=== PATIENT | female | born 1990 | race Caucasian/White ===

== ENCOUNTER 2016-11-02 14:19 | Inpatient (IN) | payer OTHER ==
[~2016-11-02] VITALS: Ht 160 cm; Wt 98.4 kg
[~2016-11-02 14:19] MED LIST: ALBU1AER9; ENAL1TAB34 PO; FLUT50SP14 NAE; GLUCAGON; INSDGIPEN SC; INSU100I10 SC; INSU100I17 SC; INSU1INJ7 SC; MOME110A2 IN; SERT25TA PO
[2016-11-02] MEDS ORDERED: ETONMIS VAGRING (14:54)
[2016-11-02] MEDS ORDERED: LORA10CA10 PO (14:54)
[2016-11-02] MEDS ORDERED: LISI2.5T5 PO (14:54)
[2016-11-02] MEDS ORDERED: VNTHFA/IN INH (14:54)
[2016-11-02] MEDS ORDERED: AMT25 PO (14:54)
[2016-11-02] MEDS ORDERED: GLC/500 PO (14:54)
[2016-11-02] MEDS ORDERED: FLUT1INH INH (14:54)
[2016-11-02] MEDS ORDERED: SERT50TA PO (14:54)
[2016-11-02] MEDS ORDERED: IMT100 PO (14:54)
[2016-11-02] MEDS ORDERED: INSUINJ5 (14:54)
[2016-11-02] MEDS ORDERED: ASPI81TA28 PO (14:54)
--- NOTE | 2016-11-02 15:32 | EMERGENCY ROOM VISIT NOTE ---
History First contact with patient: 14:45 Chief Complaint: ILLNESS Stated Complaint: HIVES,MUSCLE SPASMS ON R SIDE OF BODY History of Present Illness The patient is a 26 year old female who presents to the Emergency Room with complaints of right-sided muscle spasms that have been going on for 3 weeks. The patient reports muscle contractions in her right and lower extremity intermittently throughout the day. She thought that this may be related to the Chantix that she started in order to quit smoking. She stopped taking Chantix 4 days ago with no improvement in her symptoms. She was reportedly seen at [facility]. A workup was performed including blood work and a CT scan. No abnormalities were noted. She was reportedly told that it could possibly be a "mini stroke." She was recommended to start aspirin. She has been taking aspirin since Tuesday. She woke up with hives yesterday morning. She is also very itchy. She denies any difficulty swallowing or shortness of breath. No heart palpitations or dizziness. She does not have any known allergies to drugs. She does report an allergic reaction to insect stings. The patient has not tried any [id number]-[id number] medications for her symptoms. Review of Systems 10 system review performed and negative unless noted in HPI or below Past Medical/Surgical History Medical Problems: (1) MS (multiple sclerosis) (2) Multiple sclerosis PCO S Type 2 diabetes Hypertension Migraines Family History Diabetes Hypertension Heart disease Social History Smoking Status: Current Every Day Smoker Alcohol Use: occasionally Marital Status: single, in relationship Occupation Status: unemployed Current/Historical Medications Scheduled Amitriptyline HCl (Amitriptyline HCl), 25 MG PO DAILY Aspirin (Aspirin Ec), 81 MG PO DAILY Etonogestrel/Ethinyl Estradiol (Nuvaring), 1 EA VAGRING MONTHLY Fluticasone Furoate-Vilanterol (Breo Ellipta), 1 PUFF INH DAILY Lisinopril (Lisinopril), 2.5 MG PO DAILY Loratadine (Loratadine), 10 MG PO DAILY Metformin Hcl (Glucophage), 2,000 MG PO DAILY Sertraline (Zoloft), 50 MG PO DAILY Sumatriptan Succinate (Imitrex), 100 MG PO PRN Scheduled PRN Albuterol Hfa (Ventolin Hfa), 2-4 PUFFS INH DAILY PRN for SOB/Wheezing Miscellaneous Medications Insulin Glulisine (Apidra) Allergies Coded Allergies: No Known Allergies (Unverified , 07/27/11) Physical Exam Vital Signs Date Time Temp Pulse Resp B/P (MAP) Pulse Ox O2 Delivery O2 Flow Rate FiO2 11/02/16 17:30 102 20 137/84 98 Room Air 11/02/16 15:51 108 20 113/79 98 Room Air 11/02/16 14:21 36.8 126 20 121/80 97 Room Air Physical Exam VITALS: Vitals are noted on the nurse's note and reviewed by myself. Vital signs stable. GENERAL: 26-year-old female, in no acute distress, nondiaphoretic, well- developed well-nourished. SKIN: Sparse urticaria noted to the face and neck.. HEAD: Normocephalic atraumatic. EYES: Conjunctivae without injection, sclerae without icterus. Extraocular movements intact. MOUTH: Mucous membranes moist. No swelling of the oropharynx Tonsils are not enlarged. Pharynx without erythema or exudate. Uvula midline. Airway patent. Tongue does not deviate. NECK: Supple without nuchal rigidity. No lymphadenopathy. Cervical spine is nontender. No JVD. HEART: Regular rate and rhythm without murmurs gallops or rubs. LUNGS: Clear to auscultation bilaterally without wheezes, rales or rhonchi. No accessory muscle use. ABDOMEN: Positive bowel sounds x 4.Soft, nontender, without organomegaly. No guarding or rebound tenderness. MUSCULOSKELETAL: No muscle atrophy, erythema, or edema noted. Full range of motion in all extremities. No tenderness to palpation. Normal gait. Strength 5/5 throughout. NEURO: Patient was alert and oriented to person place and time. Negative pronator drift. Normal heel-to-toe walking. Sensation intact. Normal cerebellar function. Normal sensation to touch. No focal neurological deficits. Medical Decision & Procedures Laboratory Results 11/02/16 15:30 Red Blood Count 4.61, Mean Corpuscular Volume 86.6, Mean Corpuscular Hemoglobin 28.6, Mean Corpuscular Hemoglobin Concent 33.1, Mean Platelet Volume 9.3, Neutrophils (%) (Auto) 67.5, Lymphocytes (%) (Auto) 23.4, Monocytes (%) (Auto) 5.3, Eosinophils (%) (Auto) 3.3, Basophils (%) (Auto) 0.4, Neutrophils # (Auto) 9.87, Lymphocytes # (Auto) 3.42, Monocytes # (Auto) 0.78, Eosinophils # (Auto) 0.48, Basophils # (Auto) 0.06 11/02/16 15:30 Test 11/02/16 15:30 11/02/16 16:23 11/02/16 18:33 White Blood Count 14.63 K/uL (4.8-10.8) Red Blood Count 4.61 M/uL (4.2-5.4) Hemoglobin 13.2 g/dL (12.0-16.0) Hematocrit 39.9 % (37-47) Mean Corpuscular Volume 86.6 fL (80-100) Mean Corpuscular Hemoglobin 28.6 pg (25-34) Mean Corpuscular Hemoglobin Concent 33.1 g/dl (32-36) Platelet Count 376 K/uL (130-400) Mean Platelet Volume 9.3 fL (7.4-10.4) Neutrophils (%) (Auto) 67.5 % Lymphocytes (%) (Auto) 23.4 % Monocytes (%) (Auto) 5.3 % Eosinophils (%) (Auto) 3.3 % Basophils (%) (Auto) 0.4 % Neutrophils # (Auto) 9.87 K/uL (1.4-6.5) Lymphocytes # (Auto) 3.42 K/uL (1.2-3.4) Monocytes # (Auto) 0.78 K/uL (0.11-0.59) Eosinophils # (Auto) 0.48 K/uL (0-0.5) Basophils # (Auto) 0.06 K/uL (0-0.2) RDW Standard Deviation 41.7 fL (36.4-46.3) RDW Coefficient of Variation 13.1 % (11.5-14.5) Immature Granulocyte % (Auto) 0.1 % Immature Granulocyte # (Auto) 0.02 K/uL (0.00-0.02) Erythrocyte Sedimentation Rate 28 mm/hr (0-21) Anion Gap 9.0 mmol/L (3-11) Est Creatinine Clear Calc Drug Dose 96.4 ml/min Estimated GFR () 91.6 Estimated GFR (Non- 79.1 BUN/Creatinine Ratio 14.1 (10-20) Calcium Level 8.9 mg/dl (8.5-10.1) Lyme Disease IgG Antibody NEG (NEG) Lyme Disease IgM Antibody NEG (NEG) Urine Test NEG (NEG) Medications Administered Medications (Trade) Dose Ordered Sig/Bhavana Route Start Time Stop Time Status Last Admin Dose Admin Methylprednisolone Sodium Succinate (Solu-Medrol IV) 40 mg NOW STAT IV 11/02/16 15:11 11/02/16 15:15 DC 11/02/16 15:47 40 MG Diphenhydramine HCl (Benadryl Cap) 50 mg NOW ONCE PO 11/02/16 15:15 11/02/16 15:16 DC 11/02/16 15:47 50 MG Sodium Chloride 1,000 ml @ 999 mls/hr Q1H1M ONCE IV 11/02/16 16:15 11/02/16 17:15 DC 11/02/16 16:15 999 MLS/HR ED Course Patient was seen and examined Vital signs including blood pressure were reviewed medications list was verified with patient Labs were obtained, and a saline lock was established. The patient was given 1 dose of Solu-Medrol 40 mg IV and Benadryl 50 mg po. She was also hydrated with 1 L of normal saline. An MRI was performed and reviewed The patient was discussed with Dr. Whitney from neurology I also discussed the patient with my attending physician, Dr. Pedro I contacted the [facility] Hospitalist service, who agreed to observe the patient overnight Medical Decision Differential diagnosis: Musculoskeletal disease, multiple sclerosis, CVA, Lyme disease, other rheumatologic disease This patient is a pleasant 26-year-old female that presented to the emergency department with complaints of right upper extremity and right lower extremity spasms and addition to weakness. On exam, I could not elicit any weakness. She already had undergone a fairly extensive workup at [facility]. MRI performed today is consistent with a demyelinating process such as multiple sclerosis. Her elevated sedimentation rate would also make sense with this diagnosis. For this reason, the patient was admitted for further workup and treatment Impression Primary Impression: MS (multiple sclerosis) Departure Information Referrals Luis Laws D.O. (PCP) Patient Instructions My [facility]
[2016-11-02 15:57] LABS: BASO % 0.4 %; BASO ABS # 0.06 K/uL (0-0.2); COMPLETE YES; EOS % 3.3 %; HEMATOCRIT 39.9 % (37-47); IG% 0.1 %; LYMPH % 23.4 %; LYMPH ABS # 3.42 K/uL (1.2-3.4); MEAN CELL VOLUME 86.6 fL (80-100); MEAN CORPUSCULAR HEMOGLOBIN 28.6 pg (25-34); MEAN CORPUSCULAR HGB CONC 33.1 g/dl (32-36); MEAN PLATELET VOLUME 9.3 fL (7.4-10.4); MONO % 5.3 %; NEUT % 67.5 %; PLATELET COUNT 376 K/uL (130-400); RED BLOOD COUNT 4.61 M/uL (4.2-5.4); WHITE BLOOD COUNT 14.63 K/uL (4.8-10.8)
[2016-11-02 16:15] LABS: BUN/CREATININE RATIO 14.1 (10-20); CALCIUM 8.9 mg/dl (8.5-10.1); CREATININE 0.98 mg/dl (0.60-1.20); POTASSIUM 3.8 mmol/L (3.5-5.1)
[2016-11-02] MEDS ORDERED: SODIUM CHLORIDE 0.9% 1000ML 1,000 ML IV ONE (16:15)
[2016-11-02 16:51] LABS: LYME DISEASE AB IGG NEG (NEG)
[2016-11-02 16:52] LABS: LYME DISEASE AB IGM NEG (NEG)
[2016-11-02] MEDS ORDERED: GADAVIST IV PRN (17:15)
--- NOTE | 2016-11-02 17:17 | DIAGNOSTIC IMAGING REPORT ---
MRI OF THE BRAIN WITHOUT AND WITH IV CONTRAST CLINICAL HISTORY: R sided numbness/tingling COMPARISON STUDY: No previous studies for comparison. TECHNIQUE: MRI of the brain was performed from the vertex to the skull base utilizing various T1 and T2 weighted sequences. Following the IV administration of 5.5 mL of Gadavist contrast, additional enhanced images were obtained. FINDINGS: Sagittal T1, axial diffusion, proton density and T2 weighted axial, coronal FLAIR, and pre and post axial T1-weighted images were acquired. These were supplemented with post gadolinium coronal T1 weighted images. Axial diffusion-weighted images reveal no evidence of acute or subacute infarction. Foci of increased signal in the axial diffusion-weighted images do not demonstrate diminished signal on the ADC map. These are felt to represent areas of T2 shine through. There is no evidence of ventricular dilatation. Proton density T2-weighted and FLAIR images reveal multiple foci of increased T2 signal within the white matter. These include lesions in the right cerebellar peduncle, as well as the left external capsule. Given the patient's age, the lesions are consistent with a demyelinating process such as multiple sclerosis. There are no abnormal flow voids. Postcontrast images reveal multiple enhancing nodules, these are located within the left temporal lobe the right parietal lobe and both frontal lobes. The largest is located in the left frontal lobe measuring 1 cm. The left frontal lobe lesions demonstrate ring enhancement. These lesions likely represent active plaques. Clinical correlation is advocated. A follow-up MRI scan is also recommended. IMPRESSION: Multiple posterior fossa and supratentorial white matter lesions, many of which demonstrate solid or ring enhancement. Given the age of the patient, and the absence of a known primary malignancy, the findings likely represent demyelinating disease with active plaques. Correlation with clinical findings as well as CSF analysis is recommended. A short-term follow-up MRI study would also seem prudent. Electronically signed by: Tony Meza M.D. 11/02/2016 5:15 PM Dictated Date/Time: 11/02/2016 5:07 PM
[2016-11-02] MEDS ORDERED: MAGNESIUM HYDROXIDE SUSP 30 ML UDC PO PRN (18:45)
[2016-11-02] MEDS ORDERED: ALBUTEROL HFA 8 GM INHALER INH PRN (18:45)
[2016-11-02] MEDS ORDERED: ZOLPIDEM TARTRATE 5 MG TAB PO PRN (18:45)
[2016-11-02] MEDS ORDERED: ETONOGESTREL VAGRING SCH (18:45)
[2016-11-02] MEDS ORDERED: ONDANSETRON INJ 2 MG/ML 2 ML VIAL IV PRN (18:45)
[2016-11-02] MEDS ORDERED: ETHINYL ESTRADIOL VAGRING SCH (18:45)
[2016-11-02] MEDS ORDERED: ALUMINUM/MAGNESIUM/SIMETH (MAALOX MAX) 30 ML UDC PO PRN (18:45)
[2016-11-02] MEDS ORDERED: ACETAMINOPHEN 325 MG TAB PO PRN (18:45)
[2016-11-02] MEDS: NICOTINE 21 MG/24 HR TDSY TD SCH (18:45)
[2016-11-02] MEDS ORDERED: SUMATRIPTAN SUCC TAB 100 MG TAB PO PRN (18:45)
--- NOTE | 2016-11-02 18:52 | History and Physical ---
History & Physical Date & Time of Service: Nov 02, 2016 at 18:41 Chief Complaint: Hives,Muscle Spasms On R Side Of Body Primary Care Physician: Luis Laws D.O. History of Present Illness Source: patient This is 26 yo F with past medical hx of Type 1 Dm on insulin pump , depression , migraine headache , tobacco abuse disorder presented to ED with complain of intermittent rt hand spasm for past 3 months pt mentions her rt hand will go into severe spasm all of a sudden having balance issues no visual symptoms -no diplopia , no change of sensation no weakness or paresthesia in any other part of body no bladder or bowel incontinence Pt was seen in [place] ER past week , CT was negative was discharged on differential diagnosis of possible TIA MRI of brain in ED shows : Multiple posterior fossa and supratentorial white matter lesions, many of which demonstrate solid or ring enhancement. Given the age of the patient, and the absence of a known primary malignancy, the findings likely represent demyelinating disease with active plaques Social History Smoking Status: Current Every Day Smoker Marital Status: single, in relationship Occupational Status: unemployed Allergies Coded Allergies: No Known Allergies (Unverified , 07/27/11) Home Medications Scheduled Amitriptyline HCl (Amitriptyline HCl), 25 MG PO DAILY Aspirin (Aspirin Ec), 81 MG PO DAILY Etonogestrel/Ethinyl Estradiol (Nuvaring), 1 EA VAGRING MONTHLY Fluticasone Furoate-Vilanterol (Breo Ellipta), 1 PUFF INH DAILY Lisinopril (Lisinopril), 2.5 MG PO DAILY Loratadine (Loratadine), 10 MG PO DAILY Metformin Hcl (Glucophage), 2,000 MG PO DAILY Sertraline (Zoloft), 50 MG PO DAILY Sumatriptan Succinate (Imitrex), 100 MG PO PRN Scheduled PRN Albuterol Hfa (Ventolin Hfa), 2-4 PUFFS INH DAILY PRN for SOB/Wheezing Miscellaneous Medications Insulin Glulisine (Apidra) Review of Systems Constitutional: + fatigue, No fever, No chills, No sweats, No weight loss, No weakness, No problem reported Respiratory: No cough, No sputum, No wheezing, No shortness of breath, No dyspnea on exertion, No dyspnea at rest, No hemoptysis, No problem reported Cardiovascular: No chest pain, No orthopnea, No PND, No edema, No claudication , No palpitations, No problem reported Abdomen: No pain, No nausea, No vomiting, No diarrhea, No constipation, No GI bleeding, No problem reported Musculoskeletal: + joint pain, + muscle pain (rt hand spasm , intermittently ) Genitourinary - Female: No dysuria, No urinary frequency, No urinary urgency, No urinary incontinence, No urinary retention, No hematuria, No dysmenorrhea, No menorrhagia, No metrorrhagia, No rash, No vaginal bleeding, No vaginal discharge, No vaginal itching, No vulvodynia, No , No problem reported Neurologic: + balance problems Psychiatric: + anxiety Physical Exam Vital Signs Date Time Temp Pulse Resp B/P (MAP) Pulse Ox O2 Delivery O2 Flow Rate FiO2 11/02/16 17:30 102 20 137/84 98 Room Air 11/02/16 15:51 108 20 113/79 98 Room Air 11/02/16 14:21 36.8 126 20 121/80 97 Room Air General Appearance: no apparent distress Head: normocephalic, atraumatic Eyes: normal inspection, PERRL, EOMI, sclerae normal Neck: no JVD Respiratory/Chest: chest non-tender, lungs clear, normal breath sounds, no respiratory distress Cardiovascular: regular rate, rhythm, no edema Abdomen/GI: normal bowel sounds, non tender, soft Extremities/Musculoskelatal: normal inspection, no calf tenderness, normal capillary refill, no pedal edema, normal range of motion Neurologic/Psych: no motor/sensory deficits, alert, normal mood/affect, oriented x 3 Skin: normal color, warm/dry, no rash Lymphatic: no adenopathy Diagnostics Laboratory Results Results Past 24 Hours Test 11/02/16 15:30 11/02/16 16:23 11/02/16 18:33 Range/Units White Blood Count 14.63 4.8-10.8 K/uL Red Blood Count 4.61 4.2-5.4 M/uL Hemoglobin 13.2 12.0-16.0 g/dL Hematocrit 39.9 37-47 % Mean Corpuscular Volume 86.6 80-100 fL Mean Corpuscular Hemoglobin 28.6 25-34 pg Mean Corpuscular Hemoglobin Concent 33.1 32-36 g/dl Platelet Count 376 130-400 K/uL Mean Platelet Volume 9.3 7.4-10.4 fL Neutrophils (%) (Auto) 67.5 % Lymphocytes (%) (Auto) 23.4 % Monocytes (%) (Auto) 5.3 % Eosinophils (%) (Auto) 3.3 % Basophils (%) (Auto) 0.4 % Neutrophils # (Auto) 9.87 1.4-6.5 K/uL Lymphocytes # (Auto) 3.42 1.2-3.4 K/uL Monocytes # (Auto) 0.78 0.11-0.59 K/uL Eosinophils # (Auto) 0.48 0-0.5 K/uL Basophils # (Auto) 0.06 0-0.2 K/uL RDW Standard Deviation 41.7 36.4-46.3 fL RDW Coefficient of Variation 13.1 11.5-14.5 % Immature Granulocyte % (Auto) 0.1 % Immature Granulocyte # (Auto) 0.02 0.00-0.02 K/uL Erythrocyte Sedimentation Rate 28 0-21 mm/hr Sodium Level 137 136-145 mmol/L Potassium Level 3.8 3.5-5.1 mmol/L Chloride Level 104 98-107 mmol/L Carbon Dioxide Level 24 21-32 mmol/L Anion Gap 9.0 3-11 mmol/L Blood Urea Nitrogen 14 7-18 mg/dl Creatinine 0.98 0.60-1.20 mg/dl Est Creatinine Clear Calc Drug Dose 96.4 ml/min Estimated GFR () 91.6 Estimated GFR (Non- 79.1 BUN/Creatinine Ratio 14.1 10-20 Random Glucose 289 70-99 mg/dl Calcium Level 8.9 8.5-10.1 mg/dl Lyme Disease IgG Antibody NEG NEG Lyme Disease IgM Antibody NEG NEG Urine Test NEG NEG Microbiology Results 11/02/16 Blood Culture, Hilda Batch Pending 11/02/16 Blood Culture, Hilda Batch Pending 11/02/16 Acid Fast Stain, Hilda Batch Pending 11/02/16 Mycobacterial Culture, Hilda Batch Pending 11/02/16 Cryptococcal Antigen, Hilda Batch Pending 11/02/16 Gram Stain, Hilda Batch Pending 11/02/16 CSF Culture, Hilda Batch Pending Diagnostic Radiology MRI OF BRAIN : Multiple posterior fossa and supratentorial white matter lesions, many of which demonstrate solid or ring enhancement. Given the age of the patient, and the absence of a known primary malignancy, the findings likely represent demyelinating disease with active plaques Impression Assessment and Plan RT HAND SPASM /ABNORMAL MRI OF BRAIN : presents with intermittent rt hand spasm for past 3 weeks /associated with gait disturbance MRI of brain : Multiple posterior fossa and supratentorial white matter lesions, many of which demonstrate solid or ring enhancement. Given the age of the patient, and the absence of a known primary malignancy, the findings likely represent demyelinating disease with active plaques d/w Neurology Dr Whitney - pt will need CSF analysis for definitive diagnosis no role for high dose or IV steroid ordered for Lumber puncture Fluro guided by Radiology in AM given mentions of multiple solid /ring enhancement -CT abdomen /pelvis /CT chest ordered for further work up /rule out mets TACHYCARDIA /MILD LEUKOCYTOSIS : no fever or chills UA and culture ordered check blood culture D -dimer CT chest with PE protocol TYPE 1 DM : on insulin pump -will be continued check hb A1c in AM lab PCOS : hold metformin for contrast study in CT scan TOBACCO ABUSE DISORDER : ordered Nicotine patch FULL CODE DVT PROPHYLAXIS : low risk scd and teds no sub q heparin /hold aspirin for LP in AM DISPOSITION : discharge home when medically stable Level of Care Med/Surg Resuscitation Status FULL RESUSCITATION VTE Prophylaxis VTE Risk Assessment Done? Y/N: Yes Risk Level: Low Given or contraindicated: Betty Stockings, SCD's Additional Copies To Luis Laws D.O. Mateer, John, M.D. (MEDICINE)
[2016-11-02] MEDS ORDERED: NICOTINE 21 MG/24 HR TDSY ONE (18:57)
[2016-11-02] MEDS ORDERED: OPTIRAY 320 IV PRN (19:45)
[2016-11-02] MEDS ORDERED: POLYETHYLENE (MIRALAX) 17 GM PACK PO PRN (19:45)
--- NOTE | 2016-11-02 19:51 | DIAGNOSTIC IMAGING REPORT ---
CT ABD/PELVIS IV CONTRAST ONLY CLINICAL HISTORY: Intracranial masses. Possible metastatic disease. COMPARISON STUDY: None. TECHNIQUE: Following the IV administration of 116 mL of Optiray-320, CT scan of the abdomen and pelvis was performed from the lung bases to the proximal femurs. Images are reviewed in the axial, sagittal, and coronal planes. IV contrast was administered without complication. CT DOSE: FINDINGS: Lower chest: The heart is normal in size and configuration, without pericardial effusion. The lung bases and pleural spaces are clear. Liver: The contrast-enhanced liver is normal in size, contour, and attenuation. There is no intrahepatic biliary ductal dilatation. The hepatic veins and portal veins are patent. Gallbladder: Unremarkable. Spleen: Normal in size and attenuation. Pancreas: Unremarkable. Adrenal glands: Unremarkable. Kidneys: There is symmetric renal cortical enhancement. The kidneys are normal in size without hydronephrosis. Bowel: There are no transition zones indicate bowel obstruction. The appendix appears normal. There is no acute diverticulitis. Peritoneum: There is no intraperitoneal free air or abdominal ascites. Vasculature: The abdominal aorta is normal in course and caliber. Adenopathy: None. Pelvic viscera: The bladder, and pelvic viscera are unremarkable. Skeletal structures: No destructive osseous lesions are seen. IMPRESSION: Normal Study Electronically signed by: Tony Meza M.D. 11/02/2016 7:49 PM Dictated Date/Time: 11/02/2016 7:44 PM
--- NOTE | 2016-11-02 19:54 | DIAGNOSTIC IMAGING REPORT ---
CT ANGIOGRAPHY OF THE CHEST, PULMONARY EMBOLUS PROTOCOL CLINICAL HISTORY: Tachycardia. Muscle spasms. COMPARISON STUDY: No previous studies for comparison. TECHNIQUE: Following IV administration of 116 mL of Optiray-320, helical axial images of the chest were obtained utilizing the pulmonary embolus protocol. Maximal intensity projections and sagittal and coronal reformats were viewed on an independent 3D workstation. IV contrast was administered without complication. CT DOSE: 1929.81 mGy.cm FINDINGS: No pulmonary emboli are identified. There is no evidence of thoracic aortic dissection. Size the heart is normal. There is no pericardial effusion. No enlarged axillary, mediastinal or hilar lymph nodes are present. The central airways are patent. There is no consolidation to suggest pneumonia. The lungs are clear. Bony thorax is unremarkable. Abdomen and pelvis will be reported separately. IMPRESSION: 1. No pulmonary identified. 2. No acute intrathoracic findings. 3. No evidence of malignancy within the chest. Electronically signed by: Isaac Page M.D. 11/02/2016 7:52 PM Dictated Date/Time: 11/02/2016 7:43 PM
[2016-11-02] MEDS ORDERED: IV FLUIDS COMPLETED PRN (21:00)
[2016-11-02] MEDS: SODIUM CHLORIDE 0.9% 1000ML 1,000 ML IV SCH (22:23)
[2016-11-02] MEDS: AMITRIPTYLINE HCL 25 MG TAB PO SCH (22:24)
[2016-11-02 23:16] VITALS: BP 130/73; PULSE 101; TEMP 36.9; O2SAT 96
[2016-11-02 23:22] LABS: URINE APPEARANCE CLEAR (CLEAR); URINE BILIRUBIN NEG (NEG); URINE COLOR YELLOW; URINE EPITHELIAL CELL AUTO 20-30 /lpf (0-5); URINE NITRITE NEG (NEG); URINE SPECIFIC GRAVITY > 1.045 (1.000-1.030); UROBILINOGEN NEG (NEG); ZZUR CULT IF INDIC CLEAN CATCH NO
[2016-11-02 23:26] VITALS: BP 136/81; PULSE 112; TEMP 37; O2SAT 96; BMI 38.4
[2016-11-02 23:33] LABS: MANUAL MICROSCOPIC REQUIRED? NO; REVIEW REQ? NO
[2016-11-03] VITALS: O2SAT 96
[2016-11-03 06:19] LABS: HEMATOCRIT 38.3 % (37-47); MEAN CORPUSCULAR HEMOGLOBIN 29.9 pg (25-34); MEAN CORPUSCULAR HGB CONC 33.9 g/dl (32-36); MEAN PLATELET VOLUME 9.3 fL (7.4-10.4); PLATELET COUNT 374 K/uL (130-400); RED BLOOD COUNT 4.35 M/uL (4.2-5.4); WHITE BLOOD COUNT 16.55 K/uL (4.8-10.8)
--- NOTE | 2016-11-03 06:38 | Neurology Consultation ---
Neurology Consultation Date of Consultation: Nov 03, 2016. Attending Physician: Trinh Mosquera M.D. Primary Care Physician: Luis Laws D.O. Reason for Consultation: muscle spasms and abnormal mri History of Present Illness Source: patient, family, hospital records 26 year old woman with prior history of longstanding diabetes with apparent hypothyroidism as well who presented with episodic spasms of right hand, arm and leg to a lesser degree, Seen in [place] [facility] diagnosed as having tias and given single dose of baby asa with development of hives and facial swelling Presented to our ER last pm for "another opinion" and mri shows mjultiple supraand infratentorial higg t2 intensity signals with some ring enhancement Differential included ms parainfectious agents with post infectious disseminated encephalomyelitis and 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 mets and there have been no preceding illnesses, headache vertigo visual loss gait issues spinal pain radicular pain and no systemic symptoms to suggest either an underlying malignancy or a febrile illness She has no been admitted and I have seen her discussed our finding with both her, her family and Dr Cooper Past Medical/Surgical History Social History Smoking Status: Current Every Day Smoker Marital Status: single, in relationship Occupational Status: unemployed Allergies Coded Allergies: No Known Allergies (Unverified , 07/27/11) Home Medications Scheduled Amitriptyline HCl (Amitriptyline HCl), 25 MG PO DAILY Aspirin (Aspirin Ec), 81 MG PO DAILY Etonogestrel/Ethinyl Estradiol (Nuvaring), 1 EA VAGRING MONTHLY Fluticasone Furoate-Vilanterol (Breo Ellipta), 1 PUFF INH DAILY Lisinopril (Lisinopril), 2.5 MG PO DAILY Loratadine (Loratadine), 10 MG PO DAILY Metformin Hcl (Glucophage), 2,000 MG PO DAILY Sertraline (Zoloft), 50 MG PO DAILY Sumatriptan Succinate (Imitrex), 100 MG PO PRN Scheduled PRN Albuterol Hfa (Ventolin Hfa), 2-4 PUFFS INH DAILY PRN for SOB/Wheezing Miscellaneous Medications Insulin Glulisine (Apidra) Review of Systems Constitutional: + fatigue, No fever, No chills, No sweats, No weight loss, No weakness, No problem reported Respiratory: No cough, No sputum, No wheezing, No shortness of breath, No dyspnea on exertion, No dyspnea at rest, No hemoptysis, No problem reported Cardiovascular: No chest pain, No orthopnea, No PND, No edema, No claudication , No palpitations, No problem reported Abdomen: No pain, No nausea, No vomiting, No diarrhea, No constipation, No GI bleeding, No problem reported Musculoskeletal: + joint pain, + muscle pain (rt hand spasm , intermittently ) Genitourinary - Female: No dysuria, No urinary frequency, No urinary urgency, No urinary incontinence, No urinary retention, No hematuria, No dysmenorrhea, No menorrhagia, No metrorrhagia, No rash, No vaginal bleeding, No vaginal discharge, No vaginal itching, No vulvodynia, No , No problem reported Neurologic: + balance problems Psychiatric: + anxiety Social History Smoking Status: Current every day smoker Marital Status: single, in relationship Occupation Status: unemployed Allergies Coded Allergies: Aspirin (Verified Allergy, Intermediate, hives and swelling , 11/03/16) per pt Current Inpatient Medications Current Inpatient Medications Medications (Trade) Dose Ordered Sig/Bhavana Route Start Time Stop Time Status Last Admin Dose Admin Gadobutrol (Gadavist) 9.5 mmol UD PRN IV 11/02/16 17:15 11/06/16 17:14 Acetaminophen (Tylenol Tab) 650 mg Q4H PRN PO 11/02/16 18:45 12/02/16 18:44 Al Hydrox/Mg Hydrox/Simethicone (Maalox Max Susp) 15 ml Q4H PRN PO 11/02/16 18:45 12/02/16 18:44 Magnesium Hydroxide (Milk Of Magnesia Susp) 30 ml Q6H PRN PO 11/02/16 18:45 12/02/16 18:44 Polyethylene (Miralax Powder Packet) 17 gm DAILY PRN PO 11/02/16 19:45 12/02/16 19:44 Zolpidem Tartrate (Ambien Tab) 5 mg HSZ PRN PO 11/02/16 18:45 12/02/16 18:44 Ondansetron HCl (Zofran Inj) 4 mg Q6H PRN IV 11/02/16 18:45 12/02/16 18:44 Nicotine (Nicoderm Cq 21MG Patch) 1 patch QAM TD 11/02/16 18:45 8/10/17 18:44 Miscellaneous (Remove Nicoderm Patch) 1 ea HS N/A 11/03/16 22:00 12/03/16 21:59 Sodium Chloride 1,000 ml @ 100 mls/hr Q10H IV 11/02/16 21:00 12/02/16 20:59 11/02/16 22:23 100 MLS/HR Albuterol (Ventolin Hfa Inhaler) 2 puffs DAILY PRN INH 11/02/16 18:45 12/02/16 18:44 Amitriptyline HCl (Elavil Tab) 25 mg HS PO 11/02/16 22:00 12/02/16 21:59 11/02/16 22:24 25 MG Lisinopril (Zestril Tab) 2.5 mg DAILY PO 11/03/16 08:00 12/03/16 08:59 Sertraline HCl (Zoloft Tab) 50 mg DAILY PO 11/03/16 08:00 12/03/16 08:59 Sumatriptan Succinate (Imitrex Tab) 100 mg PRN PRN PO 11/02/16 18:45 12/02/16 18:44 Miscellaneous Information (Order Awaiting Action) 1 ea QS N/A 11/03/16 00:00 12/03/16 00:00 Loratadine (Claritin Tab) 10 mg DAILY PO 11/03/16 08:00 12/03/16 08:59 Ioversol (Optiray 320) 116 ml UD PRN IV 11/02/16 19:45 11/06/16 19:44 Miscellaneous (Iv Fluids Completed) 1 ea PRN PRN N/A 11/02/16 21:00 11/02/17 20:59 Physical Exam Vital Signs (Past 24 Hrs): Date Time Temp Pulse Resp B/P (MAP) Pulse Ox O2 Delivery O2 Flow Rate FiO2 11/03/16 00:00 96 Room Air 11/02/16 23:26 37.0 112 18 136/81 96 Room Air 11/02/16 23:16 36.9 101 18 130/73 (92) 96 Room Air 11/02/16 19:02 76 20 171/98 98 11/02/16 17:30 102 20 137/84 98 Room Air 11/02/16 15:51 108 20 113/79 98 Room Air 11/02/16 14:21 36.8 126 20 121/80 97 Room Air Physical Exam: , appearance mildly overnourished otherwise healthy and normal Ears, Nose, Mouth and Throat: mucous membranes moist, no injection and skin normal, eyes normal Cardiovascular: normal S-1 and S-2 and regular rate and rhythm Respiratory: clear to auscultation (CTA) and no rales, ronchi or wheeze Musculoskeletal: no peripheral edema and good distal pulses Skin: normal and intact Eyes: extraocular muscles intact (EOMI) and pupils equal, round and reactive to light (PERRL) NEUROLOGIC EXAMINATION: Mental status: Alert and interactive Oriented to full date and location Oriented to person Speech fluent with no evidence of aphasia Cranial Nerves Normal findings for Cranial Nerves II - XII Reflexes: Deep tendon reflexes were symmetrical and graded 2/5. Plantar responses were bilaterally extensor Sensory: no sensory deficits Coordination: on yjtgcd-sy-badt, wwpm-fjpd-vzxs and Romberg absent Gait/Stance: Not tested due to post lp status with bed rest Motor: Negative for pronator drift of out stretched arms with eyes closed. Strength: Normal - 5/5 all extremities Laboratory Results Past 24 Hours: 11/03/16 06:02 Test 11/02/16 15:30 11/02/16 16:23 11/02/16 22:55 11/03/16 04:44 Immature Granulocyte % (Auto) 0.1 % White Blood Count 14.63 K/uL (4.8-10.8) Red Blood Count 4.61 M/uL (4.2-5.4) Hemoglobin 13.2 g/dL (12.0-16.0) Hematocrit 39.9 % (37-47) Mean Corpuscular Volume 86.6 fL (80-100) Mean Corpuscular Hemoglobin 28.6 pg (25-34) Mean Corpuscular Hemoglobin Concent 33.1 g/dl (32-36) Platelet Count 376 K/uL (130-400) Mean Platelet Volume 9.3 fL (7.4-10.4) Neutrophils (%) (Auto) 67.5 % Lymphocytes (%) (Auto) 23.4 % Monocytes (%) (Auto) 5.3 % Eosinophils (%) (Auto) 3.3 % Basophils (%) (Auto) 0.4 % Neutrophils # (Auto) 9.87 K/uL (1.4-6.5) Lymphocytes # (Auto) 3.42 K/uL (1.2-3.4) Monocytes # (Auto) 0.78 K/uL (0.11-0.59) Eosinophils # (Auto) 0.48 K/uL (0-0.5) Basophils # (Auto) 0.06 K/uL (0-0.2) Immature Granulocyte # (Auto) 0.02 K/uL (0.00-0.02) Erythrocyte Sedimentation Rate 28 mm/hr (0-21) Est Creatinine Clear Calc Drug Dose 96.4 ml/min Lyme Disease IgG Antibody NEG (NEG) Lyme Disease IgM Antibody NEG (NEG) Urine Test NEG (NEG) Urine Color YELLOW Urine Appearance CLEAR (CLEAR) Urine pH 6.0 (4.5-7.5) Urine Specific [place] > 1.045 (1.000-1.030) Urine Protein NEG (NEG) Urine Glucose (UA) 3+ (NEG) Urine Ketones NEG (NEG) Urine Occult Blood 1+ (NEG) Urine Nitrite NEG (NEG) Urine Bilirubin NEG (NEG) Urine Urobilinogen NEG (NEG) Urine Leukocyte Esterase NEG (NEG) Urine WBC (Auto) 1-5 /hpf (0-5) Urine RBC (Auto) 0-4 /hpf (0-4) Urine Hyaline Casts (Auto) 0 /lpf (0-5) Urine Epithelial Cells (Auto) 20-30 /lpf (0-5) Urine Bacteria (Auto) NEG (NEG) Test 11/03/16 05:58 11/03/16 06:02 Red Blood Count 4.35 M/uL (4.2-5.4) Mean Corpuscular Volume 88.0 fL (80-100) Mean Corpuscular Hemoglobin 29.9 pg (25-34) Mean Corpuscular Hemoglobin Concent 33.9 g/dl (32-36) RDW Standard Deviation 42.0 fL (36.4-46.3) RDW Coefficient of Variation 13.0 % (11.5-14.5) Mean Platelet Volume 9.3 fL (7.4-10.4) Imaging MRI OF THE BRAIN WITHOUT AND WITH IV CONTRAST CLINICAL HISTORY: R sided numbness/tingling COMPARISON STUDY: No previous studies for comparison. TECHNIQUE: MRI of the brain was performed from the vertex to the skull base utilizing various T1 and T2 weighted sequences. Following the IV administration of 5.5 mL of Gadavist contrast, additional enhanced images were obtained. FINDINGS: Sagittal T1, axial diffusion, proton density and T2 weighted axial, coronal FLAIR, and pre and post axial T1-weighted images were acquired. These were supplemented with post gadolinium coronal T1 weighted images. Axial diffusion-weighted images reveal no evidence of acute or subacute infarction. Foci of increased signal in the axial diffusion-weighted images do not demonstrate diminished signal on the ADC map. These are felt to represent areas of T2 shine through. There is no evidence of ventricular dilatation. Proton density T2-weighted and FLAIR images reveal multiple foci of increased T2 signal within the white matter. These include lesions in the right cerebellar peduncle, as well as the left external capsule. Given the patient's age, the lesions are consistent with a demyelinating process such as multiple sclerosis. There are no abnormal flow voids. Postcontrast images reveal multiple enhancing nodules, these are located within the left temporal lobe the right parietal lobe and both frontal lobes. The largest is located in the left frontal lobe measuring 1 cm. The left frontal lobe lesions demonstrate ring enhancement. These lesions likely represent active plaques. Clinical correlation is advocated. A follow-up MRI scan is also recommended. IMPRESSION: Multiple posterior fossa and supratentorial white matter lesions, many of which demonstrate solid or ring enhancement. Given the age of the patient, and the absence of a known primary malignancy, the findings likely represent demyelinating disease with active plaques. Correlation with clinical findings as well as CSF analysis is recommended. A short-term follow-up MRI study would also seem prudent. Electronically signed by: Tony Meza M.D. 11/02/2016 5:15 PM Dictated Date/Time: 11/02/2016 5:[address] ABD/PELVIS IV CONTRAST ONLY CLINICAL HISTORY: Intracranial masses. Possible metastatic disease. COMPARISON STUDY: None. TECHNIQUE: Following the IV administration of 116 mL of Optiray-320, CT scan of the abdomen and pelvis was performed from the lung bases to the proximal femurs. Images are reviewed in the axial, sagittal, and coronal planes. IV contrast was administered without complication. CT DOSE: FINDINGS: Lower chest: The heart is normal in size and configuration, without pericardial effusion. The lung bases and pleural spaces are clear. Liver: The contrast-enhanced liver is normal in size, contour, and attenuation. There is no intrahepatic biliary ductal dilatation. The hepatic veins and portal veins are patent. Gallbladder: Unremarkable. Spleen: Normal in size and attenuation. Pancreas: Unremarkable. Adrenal glands: Unremarkable. Kidneys: There is symmetric renal cortical enhancement. The kidneys are normal in size without hydronephrosis. Bowel: There are no transition zones indicate bowel obstruction. The appendix appears normal. There is no acute diverticulitis. Peritoneum: There is no intraperitoneal free air or abdominal ascites. Vasculature: The abdominal aorta is normal in course and caliber. Adenopathy: None. Pelvic viscera: The bladder, and pelvic viscera are unremarkable. Skeletal structures: No destructive osseous lesions are seen. IMPRESSION: Normal Study Electronically signed by: Tony Meza M.D. 11/02/2016 7:49 PM Dictated Date/Time: 11/02/2016 7:[address] ANGIOGRAPHY OF THE CHEST, PULMONARY EMBOLUS PROTOCOL CLINICAL HISTORY: Tachycardia. Muscle spasms. COMPARISON STUDY: No previous studies for comparison. TECHNIQUE: Following IV administration of 116 mL of Optiray-320, helical axial images of the chest were obtained utilizing the pulmonary embolus protocol. Maximal intensity projections and sagittal and coronal reformats were viewed on an independent 3D workstation. IV contrast was administered without complication. CT DOSE: 1929.81 mGy.cm FINDINGS: No pulmonary emboli are identified. There is no evidence of thoracic aortic dissection. Size the heart is normal. There is no pericardial effusion. No enlarged axillary, mediastinal or hilar lymph nodes are present. The central airways are patent. There is no consolidation to suggest pneumonia. The lungs are clear. Bony thorax is unremarkable. Abdomen and pelvis will be reported separately. IMPRESSION: 1. No pulmonary identified. 2. No acute intrathoracic findings. 3. No evidence of malignancy within the chest. Electronically signed by: Isaac Page M.D. 11/02/2016 7:52 PM Dictated Date/Time: 11/02/2016 7:43 PM Impression I have discussed this case with the ER staff and subsequenty with Dr Mosquera. Images and repports and preliminary labs reviewed Patient will be seen later this afternoon and a full physican and amended history will be added to the chart At present with the history and imaging studies ( including negative ct of chest abdoman and plelvis ) and give the age and pattern of abnormality on mri of the brain the most likely diagnosis is multiple sclerosis LP with the standard serum and csf studies for ms. lyme' sarcoid and other infectious processes is to be done today ' we will likely do a cervical mri as well to ascertain whether there are acive plaques in the cord and consider therapeutic options when lab testing is more complete but suspect a course of iv steoirds and a subsequent taper will eventully required wit intermediate accountant treatment to be decided. We will need eeg to be certain some of the spasms are not due to seiizure activity which would be unusual but not out of the realm of possibilities particularaly if a plaque is near the cortical subcortical junction. Amended note to follow this afternoon Exam this afternoon as above recorded and reveals no signs other than bilateral upgoing toes The differential diagnosis remains as per radiology but clinically with her prior assumed autoimmune mediated issues I strongly suspect ms and there is no evidence to support other mets or primary cancers and no history to sugggest an infectious process We need to wait results of csf and eeg and cervical mri but she is anxious to leave and suspect we will only be able to hold her here until after the mri and eeg I doubt seizures however on review of the history and exam bu the lestion in the left frontal subcortical zone could theoretically prodce some spasms of the conralateral right am Plan See above need csf for ms and the usual suspects as above noted, eventually a cervical mri with and without contrast an eeg and likely a course of iv steroids with oral taper to follow and a return visit to neurology for determination of prison rx will need juan carlos virus stratification bu this is an outpatent test in our lab as she might be a candidate for very aggressive early rx with tyasbri or one of the oral agents with a higher risk for pml Currently her clinical state despite the presence of enhancement of several lesions does not justify steroids and she desires discharge Unless csf is markedly abnormal and suggests an infectious process we could let her go home with follow up in neurology outpatient clinic in about two weeks I will not be in [facility] until tomorrow pm so am not likely to see her prior to discharge will discuss with Dr Mosquera in the morning
[2016-11-03 06:46] LABS: ESTIMATED AVERAGE GLUCOSE 180 mg/dl; HA1C FLAG Normal (Normal)
[2016-11-03 06:47] LABS: BUN/CREATININE RATIO 13.4 (10-20); CALCIUM 8.3 mg/dl (8.5-10.1); CREATININE 0.8 mg/dl (0.60-1.20); POTASSIUM 4.1 mmol/L (3.5-5.1)
[2016-11-03 07:11] VITALS: BP 108/62; PULSE 106; TEMP 36.9; O2SAT 95
[2016-11-03] MEDS: SODIUM CHLORIDE 0.9% 1000ML 1,000 ML IV SCH (07:56)
[2016-11-03] MEDS: LORATADINE 10 MG TAB PO SCH (07:57)
[2016-11-03] MEDS: LISINOPRIL 2.5 MG TAB PO SCH (07:57)
[2016-11-03] MEDS: NICOTINE 21 MG/24 HR TDSY TD SCH (07:57)
[2016-11-03] MEDS: SERTRALINE HCL 50 MG TAB PO SCH (07:57)
[2016-11-03 13:23] VITALS: Ht 160 cm; Wt 98.4 kg
[2016-11-03] MEDS ORDERED: ACETAMINOPHEN 500 MG TAB PO PRN (14:45)
--- NOTE | 2016-11-03 14:52 | DIAGNOSTIC IMAGING REPORT ---
LUMBAR PUNCTURE DIAGNOSTIC CLINICAL HISTORY: 26 years-old Female presenting with brain MRI change /multiple sclerosis . COMPARISON: MRI of the brain from 11/02/2016. PROCEDURE: The procedure, risks and benefits were discussed with the patient including the risk of spinal headache, bleeding and infection. The patient agreed to the procedure and informed written consent was obtained. The procedure was performed by Dr. Gonzalez following a timeout. The L4-5 interspinous region was targeted. Skin overlying the space was prepped and draped in the usual sterile fashion and local anesthesia was achieved with 1% lidocaine. Under intermittent fluoroscopic guidance, a 20-gauge x 3 1/2 in. Sprotte needle was inserted into the thecal sac. Opening pressure measured 27 cm of H2O. A total of 10 cc of clear, colorless cerebral spinal fluid was obtained and spread amongst 4 vials. The patient tolerated the procedure well. There were no immediate complications. The specimens were sent to the laboratory at the request of the referring physician. FLUOROSCOPY TIME: 0.4 minutes. FLUOROSCOPIC IMAGES: 0. IMPRESSION: Successful fluoroscopic guided lumbar puncture with removal of 10 cc of clear, colorless cerebral spinal fluid. No immediate complications. Electronically signed by: Khris Gonzalez M.D. 11/03/2016 2:51 PM Dictated Date/Time: 11/03/2016 2:50 PM
[2016-11-03 15:02] VITALS: BP 116/72; PULSE 102; TEMP 36.7; O2SAT 100
[2016-11-03 15:18] LABS: CSF TOTAL PROTEIN 41.6 mg/dl (15.0-45.0)
[2016-11-03 15:58] LABS: CSF APPEARANCE CLEAR; CSF COLOR COLORLESS; CSF XANTHOCHROMIC NO XANTHOCHROMIA
--- NOTE | 2016-11-03 16:29 | Progress Note ---
Internal Med Progress Note Date of Service: Nov 03, 2016. Provider Documentation: SUBJECTIVE: has lumber puncture done earlier today no complain of headache did not had any more episodes of rt hand spasm OBJECTIVE: Vital Signs-as noted below Exam: General-no sign of distress Eyes-sclera non icteric , PERRLA/EOMI ENT-NAD Neck-no JVD Lungs-CTA Heart-regular S1/S2 Abdomen-soft, non tender Extremities-no lower ext edema Neuro-no focal deficit Lab data as noted below. ASSESSMENT & PLAN: RT HAND SPASM /ABNORMAL MRI OF BRAIN : presents with intermittent rt hand spasm for past 3 weeks /associated with gait disturbance MRI of brain : Multiple posterior fossa and supratentorial white matter lesions, many of which demonstrate solid or ring enhancement. Given the age of the patient, and the absence of a known primary malignancy, the findings likely represent demyelinating disease with active plaques appreciate input form Neurology Dr Whitney - Lyme titer negative S/P lumber puncture today CSF analysis for definitive diagnosis -of MS -oligoclonal band /myelin basic protein ordered CSF WBC elevated 17 K d/w Dr Whitney regarding above finding possible finding due to active Multiple sclerosis ordered for Cervical spine MRI pt is very eager to go home -does not have any neurological symptoms at present plan is to discharge home tomorrow after MRI , EEG ordered to R/O focal seizure will have out pt follow up at Neurology office for definitive management given mentions of multiple solid /ring enhancement -CT abdomen /pelvis /CT chest ordered : normal study , no evidence of pathology LEUKOCYTOSIS : no fever or chills UA and culture ordered / blood culture -report pending CT chest with PE protocol -no PE TYPE 1 DM : on insulin pump -will be continued hb A1c ~8 PCOS : hold metformin for contrast study in CT scan TOBACCO ABUSE DISORDER : ordered Nicotine patch FULL CODE DVT PROPHYLAXIS : low risk scd and teds no sub q heparin /hold aspirin s/p Lumber puncture DISPOSITION : possible discharge home tomorrow with out patient follow up with Neurology Vital Signs: Date Time Temp Pulse Resp B/P (MAP) Pulse Ox O2 Delivery O2 Flow Rate FiO2 11/03/16 15:02 36.7 102 18 116/72 (87) 100 Room Air 11/03/16 08:00 Room Air 11/03/16 07:11 36.9 106 18 108/62 (77) 95 Room Air 11/03/16 00:00 96 Room Air 11/02/16 23:26 37.0 112 18 136/81 96 Room Air 11/02/16 23:16 36.9 101 18 130/73 (92) 96 Room Air 11/02/16 19:02 76 20 171/98 98 11/02/16 17:30 102 20 137/84 98 Room Air Lab Results: Results Past 24 Hours Test 11/02/16 22:55 11/03/16 05:58 11/03/16 06:02 11/03/16 07:37 Range/Units Urine Color YELLOW Urine Appearance CLEAR CLEAR Urine pH 6.0 4.5-7.5 Urine Specific [place] > 1.045 1.000-1.030 Urine Protein NEG NEG Urine Glucose (UA) 3+ NEG Urine Ketones NEG NEG Urine Occult Blood 1+ NEG Urine Nitrite NEG NEG Urine Bilirubin NEG NEG Urine Urobilinogen NEG NEG Urine Leukocyte Esterase NEG NEG Urine WBC (Auto) 1-5 0-5 /hpf Urine RBC (Auto) 0-4 0-4 /hpf Urine Hyaline Casts (Auto) 0 0-5 /lpf Urine Epithelial Cells (Auto) 20-30 0-5 /lpf Urine Bacteria (Auto) NEG NEG Sodium Level 138 136-145 mmol/L Potassium Level 4.1 3.5-5.1 mmol/L Chloride Level 106 98-107 mmol/L Carbon Dioxide Level 26 21-32 mmol/L Anion Gap 6.0 3-11 mmol/L Blood Urea Nitrogen 11 7-18 mg/dl Creatinine 0.80 0.60-1.20 mg/dl Est Creatinine Clear Calc Drug Dose 118.0 ml/min Estimated GFR () 117.1 Estimated GFR (Non- 101.0 BUN/Creatinine Ratio 13.4 10-20 Random Glucose 196 70-99 mg/dl Calcium Level 8.3 8.5-10.1 mg/dl White Blood Count 16.55 4.8-10.8 K/uL Red Blood Count 4.35 4.2-5.4 M/uL Hemoglobin 13.0 12.0-16.0 g/dL Hematocrit 38.3 37-47 % Mean Corpuscular Volume 88.0 80-100 fL Mean Corpuscular Hemoglobin 29.9 25-34 pg Mean Corpuscular Hemoglobin Concent 33.9 32-36 g/dl RDW Standard Deviation 42.0 36.4-46.3 fL RDW Coefficient of Variation 13.0 11.5-14.5 % Platelet Count 374 130-400 K/uL Mean Platelet Volume 9.3 7.4-10.4 fL Estimated Average Glucose 180 mg/dl Hemoglobin A1c 7.9 4.5-5.6 % Bedside Glucose 288 70-90 mg/dl Test 11/03/16 11:26 11/03/16 14:35 Range/Units Bedside Glucose 302 70-90 mg/dl CSF Color COLORLESS CSF Appearance CLEAR CSF WBC 17 0-5 /uL CSF RBC 0 0 /uL CSF Polynuclear WBCs 8.0 % CSF Mononuclear WBCs 92.0 % CSF Xanthrochromic NO XANTHOCHROMIA CSF Cell Count Tube # 3 CSF Chemistry Tube # 1 CSF Glucose 134 40-70 mg/dl CSF Total Protein 41.6 15.0-45.0 mg/dl Microbiology Results 11/02/16 Blood Culture, Received Pending 11/02/16 Blood Culture, Received Pending 11/03/16 Acid Fast Stain, Received Pending 11/03/16 Mycobacterial Culture, Received Pending 11/03/16 Cryptococcal Antigen - Final, Complete 11/03/16 Gram Stain - Final, Resulted 11/03/16 CSF Culture, Resulted Pending
--- NOTE | 2016-11-03 16:42 | Discharge Instructions ---
Discharge Instructions Date of Service Nov 03, 2016. Admission Reason for Admission: Multiple Sclerosis Discharge Discharge Diagnosis / Problem: MULTIPLE SCLEROSIS Discharge Goals Goal(s): Decrease discomfort, Diagnostic testing Activity Recommendations Activity Limitations: resume your previous activity . Instructions / Follow-Up Instructions / Follow-Up HOSPITAL FOLLOW UP 11/08/2016 10:00 AM JENNIFER Esteb[facility] NEUROLOGY FOLLOW UP : with Dr Whitney in 1-2 weeks , please call office for appointment DO NOT TAKE METFORMIN FOR 2 MORE [address] PLEASE NOTIFY DR DÍAZ OFFICE FOR INSULIN PUMP ADJUSTMENT -NEED FOR HIGH DOSE STEROID FOR MULTIPLE SCLEROSIS NEED TO QUIT SMOKING -HIGH RISK -TYPE 1 DIABETES /MULTIPLE SCLEROSIS PLEASE COME TO HOSPITAL WITH ANY ONSET OF VISION CHANGE , WEAKNESS, LOSS OF SENSATION , HAND SPASM , BALANCE ISSUE SIGN OF ACTIVE MULTIPLE SCLEROSIS FLARE NEED IMMEDIATE TREATMENT Current Hospital Diet Patient's current hospital diet: Diabetes Type 1 Diet Discharge Diet Recommended Diet: Diabetes Type 1 Diet Pending Studies Studies pending at discharge: no Laboratory Results Hemoglobin A1c Test 11/03/16 06:02 Range/Units Estimated Average Glucose 180 mg/dl Hemoglobin A1c 7.9 H 4.5-5.6 % Medical Emergencies . Who to Call and When: Medical Emergencies: If at any time you feel your situation is an emergency, please call 911 immediately. . Non-Emergent Contact Non-Emergency issues call your: Primary Care Provider . . "Provider Documentation" section prepared by Trinh Mosquera. . VTE Core Measure Inpt VTE Proph given/why not?: Betty Arteaga, SCD's
[2016-11-03] MEDS ORDERED: DEXTROSE 50% 50 ML SYR IV PRN (16:45)
[2016-11-03] MEDS ORDERED: GLUCAGON FOR INJ 1 MG VIAL SQ PRN (16:45)
[2016-11-03] MEDS ORDERED: GLUCOSE 10 TABS/TUBE PO PRN (16:45)
[2016-11-03] MEDS ORDERED: GLUCOSE 40% GEL 15 GM TUBE PO PRN (16:45)
[2016-11-03] MEDS ORDERED: INSULIN GLULISINE 100 UNIT/ML SC PRN (16:45)
[2016-11-03] MEDS ORDERED: NURSING VERBAL MED ORDER ONE (17:15)
[2016-11-03] MEDS: INSULIN GLULISINE SCH ×2 (17:24→21:33)
[2016-11-03] MEDS: AMITRIPTYLINE HCL 25 MG TAB PO SCH (21:34)
[2016-11-03 23:52] VITALS: BP 120/73; PULSE 93; TEMP 36.8; O2SAT 99
[2016-11-04 06:51] LABS: HEMATOCRIT 38.2 % (37-47); MEAN CELL VOLUME 88.8 fL (80-100); MEAN CORPUSCULAR HGB CONC 33.8 g/dl (32-36); MEAN PLATELET VOLUME 9.3 fL (7.4-10.4); PLATELET COUNT 338 K/uL (130-400); WHITE BLOOD COUNT 11.66 K/uL (4.8-10.8)
[2016-11-04 07:10] VITALS: BP 121/81; PULSE 87; TEMP 36.6; O2SAT 97
[2016-11-04] MEDS: NICOTINE 21 MG/24 HR TDSY TD SCH (08:00)
[2016-11-04] MEDS: LORATADINE 10 MG TAB PO SCH (08:00)
[2016-11-04] MEDS: LISINOPRIL 2.5 MG TAB PO SCH (08:00)
[2016-11-04] MEDS: SERTRALINE HCL 50 MG TAB PO SCH (08:00)
--- NOTE | 2016-11-04 10:31 | EEG Procedure Note ---
EEG Procedure Note Date of Service Nov 04, 2016. Start / End Times Start Time: 856 End Time: 916 Referring Physician Bashir Whitney MD History episodic tremor of right arm question focal seizures Home Medication List Scheduled Amitriptyline HCl (Amitriptyline HCl), 25 MG PO DAILY Etonogestrel/Ethinyl Estradiol (Nuvaring), 1 EA VAGRING MONTHLY Fluticasone Furoate-Vilanterol (Breo Ellipta), 1 PUFF INH DAILY Lisinopril (Lisinopril), 2.5 MG PO DAILY Loratadine (Loratadine), 10 MG PO DAILY Metformin Hcl (Glucophage), 2,000 MG PO DAILY Sertraline (Zoloft), 50 MG PO DAILY Sumatriptan Succinate (Imitrex), 100 MG PO PRN Scheduled PRN Albuterol Hfa (Ventolin Hfa), 2-4 PUFFS INH DAILY PRN for SOB/Wheezing Miscellaneous Medications Insulin Glulisine (Apidra) Inpatient Medication List Current Inpatient Medications Medications (Trade) Dose Ordered Sig/Bhavana Route Start Time Stop Time Status Last Admin Dose Admin Gadobutrol (Gadavist) 9.5 mmol UD PRN IV 11/02/16 17:15 11/06/16 17:14 Al Hydrox/Mg Hydrox/Simethicone (Maalox Max Susp) 15 ml Q4H PRN PO 11/02/16 18:45 12/02/16 18:44 Magnesium Hydroxide (Milk Of Magnesia Susp) 30 ml Q6H PRN PO 11/02/16 18:45 12/02/16 18:44 Polyethylene (Miralax Powder Packet) 17 gm DAILY PRN PO 11/02/16 19:45 12/02/16 19:44 Zolpidem Tartrate (Ambien Tab) 5 mg HSZ PRN PO 11/02/16 18:45 12/02/16 18:44 Ondansetron HCl (Zofran Inj) 4 mg Q6H PRN IV 11/02/16 18:45 12/02/16 18:44 Nicotine (Nicoderm Cq 21MG Patch) 1 patch QAM TD 11/02/16 18:45 12/02/16 18:44 11/04/16 08:00 1 PATCH Miscellaneous (Remove Nicoderm Patch) 1 ea HS N/A 11/03/16 22:00 12/03/16 21:59 Albuterol (Ventolin Hfa Inhaler) 2 puffs DAILY PRN INH 11/02/16 18:45 12/02/16 18:44 Amitriptyline HCl (Elavil Tab) 25 mg HS PO 11/02/16 22:00 12/02/16 21:59 11/03/16 21:34 25 MG Lisinopril (Zestril Tab) 2.5 mg DAILY PO 11/03/16 08:00 12/03/16 08:59 11/04/16 08:00 2.5 MG Sertraline HCl (Zoloft Tab) 50 mg DAILY PO 11/03/16 08:00 12/03/16 08:59 11/04/16 08:00 50 MG Sumatriptan Succinate (Imitrex Tab) 100 mg PRN PRN PO 11/02/16 18:45 12/02/16 18:44 Miscellaneous Information (Order Awaiting Action) 1 ea QS N/A 11/03/16 00:00 12/03/16 00:00 Loratadine (Claritin Tab) 10 mg DAILY PO 11/03/16 08:00 12/03/16 08:59 11/04/16 08:00 10 MG Ioversol (Optiray 320) 116 ml UD PRN IV 11/02/16 19:45 11/06/16 19:44 Miscellaneous (Iv Fluids Completed) 1 ea PRN PRN N/A 11/02/16 21:00 11/02/17 20:59 Acetaminophen (Tylenol Tab) 1,000 mg Q4H PRN PO 11/03/16 14:45 11/05/16 14:44 11/03/16 19:57 1,000 MG Insulin Glulisine (Apidra Insulin Pump) 1 ea ACHS N/A 11/03/16 16:30 12/03/16 16:29 11/03/16 21:33 1 EA Glucose (Glucose 40% Gel) UD PRN PO 11/03/16 16:45 12/03/16 16:44 Glucose (Glucose Chew Tab) 1 tabs UD PRN PO 11/03/16 16:45 12/03/16 16:44 Glucagon (Glucagon Inj) 1 mg UD PRN SQ 11/03/16 16:45 12/03/16 16:44 Dextrose (Dextrose 50% 50ML Syringe) 50 ml UD PRN IV 11/03/16 16:45 12/03/16 16:44 Insulin Glulisine (Apidra) UD PRN SC 11/03/16 16:45 12/03/16 16:44 Description This is a 21 electrode EEG with a single channel dedicated to limited EKG. The electrodes were placed in accordance with the International 10-20 system Photic stimulation was used drowsiness and light sleep were not recorded Simultaneous video monitoring was obtained during wakefulness there is a normal alpha ryhthm in posterior head regions which is bilaterally symmetrical. Theta activity is seen bilaterally and symmetrically in central regions Beta ctivit is seen bifrontally Photic stimulation provokes a normal driving response No potentially epileptogenic activity is seen Interpretation Normal eeg during wakefulness Clinical Correlation No evidence for a focal or generalized encephalopathy or potentially epileptogenic activity is seen
[2016-11-04] MEDS ORDERED: GADAVIST IV PRN (11:15)
[2016-11-04] MEDS: INSULIN GLULISINE SCH ×2 (11:32→13:31)
--- NOTE | 2016-11-04 11:35 | DIAGNOSTIC IMAGING REPORT ---
CERVICAL SPINE COMBO HISTORY: Neuropathy demyelinating disease TECHNIQUE: Multiplanar multisequence MRI of the cervical spine was performed both before and after the use of intravenous contrast. COMPARISON STUDY: None. FINDINGS: Signal characteristics of the vertebral bodies as well as intervertebral this are unremarkable. The sagittal images suggest a focus of potential demyelination posterior to the C3 level measuring 8 x 4 mm. A second focus of increased signal is noted posterior to the C6-C7 level measuring 3 mm. There is no evidence for postcontrast enhancement on the sagittal images. There is evidence for moderate mid to upper cervical adenopathy. Multiple nodes in the right as well as left cervical chains are present with right-sided nodes measuring to 1.5 cm and left nodes measured 1.2 cm. There is no evidence for abnormal enhancement characteristics of the cervical spine or cord. C2-C3: No significant central canal or neural foraminal narrowing. C3-C4: No significant central canal or neural foraminal narrowing. C4-C5: No significant central canal or neural foraminal narrowing. C5-C6: No significant central canal or neural foraminal narrowing. C6-C7: No significant central canal or neural foraminal narrowing. C7-T1: No significant central canal or neural foraminal narrowing. IMPRESSION: 1. Foci of increased signal involving the right lateral column of the cervical cord at C3 and C5-C6 2. No evidence for abnormal postcontrast enhancement. 3. This appearance is suggestive of a demyelinating disorder 4. No evidence of disc herniation or spinal stenosis. 5. Upper cervical adenopathy, unknown etiology. Considerations include reactive cervical adenitis versus an entity such as lymphoma The above report was generated using voice recognition software. It may contain grammatical, syntax or spelling errors. Electronically signed by: Chris Krishnan M.D. 11/04/2016 11:33 AM Dictated Date/Time: 11/04/2016 11:24 AM
--- NOTE | 2016-11-04 13:17 | Progress Note ---
Internal Med Progress Note Date of Service: Nov 04, 2016. Provider Documentation: SUBJECTIVE: does not have any symptom of rt hand spasm no headache no balance issue able to walk ok eager to be discharged home mother present at bedside OBJECTIVE: Vital Signs-as noted below Exam: General-no sign of distress Eyes-sclera non icteric , PERRLA/EOMI ENT-NAD Neck-no JVD Lungs-CTA Heart-regular S1/S2 Abdomen-soft, non tender Extremities-no lower ext edema Neuro-no focal deficit Lab data as noted below. ASSESSMENT & PLAN: MULTIPLE SCLEROSIS : presents with intermittent rt hand spasm for past 3 weeks /associated with gait disturbance MRI of brain : Multiple posterior fossa and supratentorial white matter lesions, many of which demonstrate solid or ring enhancement. Given the age of the patient, and the absence of a known primary malignancy, the findings likely represent demyelinating disease with active plaques appreciate input form Neurology Dr Whitney - Lyme titer negative given mentions of multiple solid /ring enhancement -CT abdomen /pelvis /CT chest ordered : normal study , no evidence of pathology S/P lumber puncture CSF analysis for definitive diagnosis -of MS -oligoclonal band /myelin basic protein ordered CSF WBC elevated 17 K d/w Dr Whitney regarding above finding possible finding due to active Multiple sclerosis Cervical spine MRI : 1. Foci of increased signal involving the right lateral column of the cervical cord at C3 and C5-C6 2. No evidence for abnormal postcontrast enhancement. 3. This appearance is suggestive of a demyelinating disorder 4. No evidence of disc herniation or spinal stenosis. EEG -negative for seizure pt's Cervical Spine MRI finding explains rt hand and arm spasm Cervical spine MRI finding D/w Dr Whitney will need inpatient hospital stay for IV Solu Medrol -with close monitoring of BSG possible IV insulin gtt -as pt is Type 1 diabetic , on insulin pump pt is very eager to go home -does not want to miss out work days does not have any neurological symptom wants to follow up at Neurology office , willing for hospital stay at later date for high dose IV Solu Medrol tx pt is discharged home today instructed to come to nearest ED with any onset of neurological symptom - weakness, hand spasm , vision change will need emergent tx for Multiple sclerosis pt and her mother verbalized understanding LEUKOCYTOSIS : improved WBC 11 k today possible due to inflammatory response in setting of active Multiple Sclerosis no fever or chills UA and culture ordered / blood culture -report pending CT chest with PE protocol -no PE TYPE 1 DM : on insulin pump -will be continued hb A1c ~8 pt is asked to update Her Endocrine Dr Aguirre office regarding possible insulin pump adjustment for steroid tx for Multiple sclerosis PCOS : hold metformin for contrast study in CT scan TOBACCO ABUSE DISORDER : ordered Nicotine patch smoking cessation counselling provided FULL CODE DVT PROPHYLAXIS : low risk scd and teds no sub q heparin /hold aspirin s/p Lumber puncture DISPOSITION : discharge home today with out patient follow up with Neurology Vital Signs: Date Time Temp Pulse Resp B/P (MAP) Pulse Ox O2 Delivery O2 Flow Rate FiO2 11/04/16 08:00 Room Air 11/04/16 07:10 36.6 87 17 121/81 (94) 97 Room Air 11/04/16 00:00 Room Air 11/03/16 23:52 36.8 93 20 120/73 (89) 99 Room Air 11/03/16 20:00 Room Air 11/03/16 16:00 Room Air 11/03/16 15:02 36.7 102 18 116/72 (87) 100 Room Air Lab Results: Results Past 24 Hours Test 11/03/16 14:35 11/04/16 06:21 Range/Units CSF Color COLORLESS CSF Appearance CLEAR CSF WBC 17 0-5 /uL CSF RBC 0 0 /uL CSF Polynuclear WBCs 8.0 % CSF Mononuclear WBCs 92.0 % CSF Xanthrochromic NO XANTHOCHROMIA CSF Cell Count Tube # 3 CSF Chemistry Tube # 1 CSF Glucose 134 40-70 mg/dl CSF Total Protein 41.6 15.0-45.0 mg/dl White Blood Count 11.66 4.8-10.8 K/uL Red Blood Count 4.30 4.2-5.4 M/uL Hemoglobin 12.9 12.0-16.0 g/dL Hematocrit 38.2 37-47 % Mean Corpuscular Volume 88.8 80-100 fL Mean Corpuscular Hemoglobin 30.0 25-34 pg Mean Corpuscular Hemoglobin Concent 33.8 32-36 g/dl RDW Standard Deviation 43.7 36.4-46.3 fL RDW Coefficient of Variation 13.4 11.5-14.5 % Platelet Count 338 130-400 K/uL Mean Platelet Volume 9.3 7.4-10.4 fL Microbiology Results 11/03/16 Acid Fast Stain, Received Pending 11/03/16 Mycobacterial Culture, Received Pending 11/03/16 Cryptococcal Antigen - Final, Complete 11/03/16 Gram Stain - Final, Resulted 11/03/16 CSF Culture - Preliminary, Resulted NO GROWTH TO DATE.
[2016-11-04 13:28] VITALS: BP 121/81; PULSE 87; TEMP 36.6; O2SAT 97
--- NOTE | 2016-11-04 13:35 | Discharge Summary ---
Discharge Summary Date of Service Nov 04, 2016. Discharge Summary Admission Date: Nov 02, 2016 at 18:36 Discharge Date: Nov 04, 2016 Discharge Disposition: Home Principal Diagnosis: MULTIPLE SCLEROSIS Procedures: LUMBER PUNCTURE EEG ; No Seizure noted MRI OF BRAIN MRI of brain : Multiple posterior fossa and supratentorial white matter lesions, many of which demonstrate solid or ring enhancement. Given the age of the patient, and the absence of a known primary malignancy, the findings likely represent demyelinating disease with active plaques MRI OF CERVICAL SPINE Cervical spine MRI : 1. Foci of increased signal involving the right lateral column of the cervical cord at C3 and C5-C6 2. No evidence for abnormal postcontrast enhancement. 3. This appearance is suggestive of a demyelinating disorder 4. No evidence of disc herniation or spinal stenosis. CT ABDOMEN /PELVIS : normal study CT CHEST WITH CONTRAST ; no evidence of PE no pathology noted Consultations: NEUROLOGY DR PERERA Medication Reconciliation Continued Medications: Albuterol Hfa (Ventolin Hfa) 200 Puffs/89313 Mcg Aers 2-4 PUFFS INH DAILY PRN for SOB/Wheezing Amitriptyline HCl (Amitriptyline HCl) 25 Mg Tab 25 MG PO DAILY Etonogestrel/Ethinyl Estradiol (Nuvaring) 1 Ea Vagring 1 EA VAGRING MONTHLY Fluticasone Furoate-Vilanterol (Breo Ellipta) 1 Inh Inh 1 PUFF INH DAILY 100/25 MCG Insulin Glulisine (Apidra) 100 Unit/Ml Inj PUMP Lisinopril (Lisinopril) 2.5 Mg Tab 2.5 MG PO DAILY Loratadine (Loratadine) 10 Mg Cap 10 MG PO DAILY Metformin Hcl (Glucophage) 500 Mg Tab 2000 MG PO DAILY FOUR 500MG TABLETS Sertraline (Zoloft) 50 Mg Tab 50 MG PO DAILY Sumatriptan Succinate (Imitrex) 100 Mg Tab 100 MG PO PRN Discontinued Medications: Aspirin (Aspirin Ec) 81 Mg Tab 81 MG PO DAILY Referrals At Discharge Follow up Referrals: Physician Referral - Within 1-2 Weeks with Bashir Perera M.D. (MEDICINE) Admission Information HPI (per Admitting provider): This is 26 yo F with past medical hx of Type 1 Dm on insulin pump , depression , migraine headache , tobacco abuse disorder presented to ED with complain of intermittent rt hand spasm for past 3 months pt mentions her rt hand will go into severe spasm all of a sudden having balance issues no visual symptoms -no diplopia , no change of sensation no weakness or paresthesia in any other part of body no bladder or bowel incontinence Pt was seen in [place] [facility] past week , CT was negative was discharged on differential diagnosis of possible TIA MRI of brain in ED shows : Multiple posterior fossa and supratentorial white matter lesions, many of which demonstrate solid or ring enhancement. Given the age of the patient, and the absence of a known primary malignancy, the findings likely represent demyelinating disease with active plaques Physical Exam (per Admitting): General Appearance: no apparent distress Head: normocephalic, atraumatic Eyes: normal inspection, PERRL, EOMI, sclerae normal Neck: no JVD Respiratory/Chest: chest non-tender, lungs clear, normal breath sounds, no respiratory distress Cardiovascular: regular rate, rhythm, no edema Abdomen/GI: normal bowel sounds, non tender, soft Extremities/Musculoskelatal: normal inspection, no calf tenderness, normal capillary refill, no pedal edema, normal range of motion Neurologic/Psych: no motor/sensory deficits, alert, normal mood/affect, oriented x 3 Skin: normal color, warm/dry, no rash Lymphatic: no adenopathy Hospital Course MULTIPLE SCLEROSIS : presents with intermittent rt hand spasm for past 3 weeks /associated with gait disturbance MRI of brain : Multiple posterior fossa and supratentorial white matter lesions, many of which demonstrate solid or ring enhancement. Given the age of the patient, and the absence of a known primary malignancy, the findings likely represent demyelinating disease with active plaques appreciate input form Neurology Dr Perera - Lyme titer negative given mentions of multiple solid /ring enhancement -CT abdomen /pelvis /CT chest ordered : normal study , no evidence of pathology S/P lumber puncture CSF analysis for definitive diagnosis -of MS -oligoclonal band /myelin basic protein ordered CSF WBC elevated 17 K d/w Dr Perera regarding above finding possible finding due to active Multiple sclerosis Cervical spine MRI : 1. Foci of increased signal involving the right lateral column of the cervical cord at C3 and C5-C6 2. No evidence for abnormal postcontrast enhancement. 3. This appearance is suggestive of a demyelinating disorder 4. No evidence of disc herniation or spinal stenosis. EEG -negative for seizure pt's Cervical Spine MRI finding explains rt hand and arm spasm Cervical spine MRI finding D/w Dr Perera will need inpatient hospital stay for IV Solu Medrol -with close monitoring of BSG possible IV insulin gtt -as pt is Type 1 diabetic , on insulin pump pt is very eager to go home -does not want to miss out work days does not have any neurological symptom wants to follow up at Neurology office , willing for hospital stay at later date for high dose IV Solu Medrol tx pt is discharged home today instructed to come to nearest ED with any onset of neurological symptom - weakness, hand spasm , vision change will need emergent tx for Multiple sclerosis pt and her mother verbalized understanding LEUKOCYTOSIS : improved WBC 11 k today possible due to inflammatory response in setting of active Multiple Sclerosis no fever or chills UA and culture ordered / blood culture -report pending CT chest with PE protocol -no PE TYPE 1 DM : on insulin pump -will be continued hb A1c ~8 pt is asked to update Her Endocrine Dr Aguirre office regarding possible insulin pump adjustment for steroid tx for Multiple sclerosis PCOS : hold metformin for contrast study in CT scan TOBACCO ABUSE DISORDER : ordered Nicotine patch smoking cessation counselling provided FULL CODE DVT PROPHYLAXIS : low risk scd and teds no sub q heparin /hold aspirin s/p Lumber puncture DISPOSITION : discharge home today with out patient follow up with Neurology Total time spent on discharge = 40 MINS This includes examination of the patient, discharge planning, medication reconciliation, and communication with other providers. Discharge Instructions Discharge Instructions Date of Service Nov 03, 2016. Admission Reason for Admission: Multiple Sclerosis Discharge Discharge Diagnosis / Problem: MULTIPLE SCLEROSIS Discharge Goals Goal(s): Decrease discomfort, Diagnostic testing Activity Recommendations Activity Limitations: resume your previous activity . Instructions / Follow-Up Instructions / Follow-Up HOSPITAL FOLLOW UP 11/08/2016 10:00 AM JENNIFER Esteban [facility] NEUROLOGY FOLLOW UP : with Dr Perera in 1-2 weeks , please call office for appointment DO NOT TAKE METFORMIN FOR 2 MORE [address] PLEASE NOTIFY [address] AGUIRRE OFFICE FOR INSULIN PUMP ADJUSTMENT -NEED FOR HIGH DOSE STEROID FOR MULTIPLE SCLEROSIS NEED TO QUIT SMOKING -HIGH RISK -TYPE 1 DIABETES /MULTIPLE SCLEROSIS PLEASE COME TO HOSPITAL WITH ANY ONSET OF VISION CHANGE , WEAKNESS, LOSS OF SENSATION , HAND SPASM , BALANCE ISSUE SIGN OF ACTIVE MULTIPLE SCLEROSIS FLARE NEED IMMEDIATE TREATMENT Current Hospital Diet Patient's current hospital diet: Diabetes Type 1 Diet Discharge Diet Recommended Diet: Diabetes Type 1 Diet Pending Studies Studies pending at discharge: no Laboratory Results Hemoglobin A1c Test 7/12/17 06:02 Range/Units Estimated Average Glucose 180 mg/dl Hemoglobin A1c 7.9 H 4.5-5.6 % Medical Emergencies . Who to Call and When: Medical Emergencies: If at any time you feel your situation is an emergency, please call 911 immediately. . Non-Emergent Contact Non-Emergency issues call your: Primary Care Provider . . "Provider Documentation" section prepared by Trinh Mosquera. . VTE Core Measure Inpt VTE Proph given/why not?: Betty Arteaga, SCD's Additional Copies To Bashir Perera M.D. (MEDICINE) Karey Gonzales,C.R.N.P.
--- NOTE | 2016-11-04 18:49 | Progress Note ---
Progress Note Date of Service Nov 04, 2016. Progress Note ATTENDING NOTE: pt was discharged earlier home wanted to postpone High dose IV Solu Medrol tx for acute flare of MS -as she had a lot to do at home and can not afford to take time off form work wanted to follow up with Neurology in clinic later got call from Dr Whitney -pt -contacted Neurology office ; asking for whether she can do IV Solu -Medrol as out pt and have endocrine office adjust her insulin pump for steroid induced hyperglycemia pt was instructed to come to [facility] ED with any symptom /or for treatment as she will need in patient admission with possible IV insulin gtt for IV Solu Medrol tx I gm/daily pt refused to come , mentioned will think about it Received multiple calls form Pt -wants to know her option of doing out pt IV steroid tx advised that will not be possible -pt is type 1 DM on insulin pump IV Solu Medrol 1 gm daily for 3-4 days tx , will need close monitoring of BSG and aggressive insulin tx to prevent DKA Pt wants to come to ER tomorrow will update [facility]
[2016-11-05] MEDS ORDERED: ETON1IMP2 SUBD (12:20)
[2016-11-16 07:41] LABS: ALBUMIN 3.7 g/dL (3.7-5.1); IGG CSF 5.4 mg/dL (0.8-7.7); IGG SERUM 929 mg/dL (694-1618); LYME DNA PCR CSF OR SYNOVIAL Not detected (Not Detected); LYME DNA SOURCE CSF; MYELIN BASIC PROTEIN 663 <2.0 mcg/L (0.0-4.0)
== END 2016-11-04 14:11 | disposition home or self-care (01) | DRG 60 ==
LOC: C.EDB 14:21 → C.MS4W 18:36 → ENRESERV 19:20
PROVIDERS: ADMIT Hospitalist; ATTEND Hospitalist
PROC: 009U3ZX Drainage of Spinal Canal, Percutaneous Approach, Diagnostic (ICD-10-PCS; principal; 2016-11-03)
DX: G35 Multiple sclerosis (principal); L50.9 Urticaria, unspecified; D72.829 Elevated white blood cell count, unspecified; E10.9 Type 1 diabetes mellitus without complications; G43.909 Migraine, unspecified, not intractable, without status migrainosus; E28.2 Polycystic ovarian syndrome; F32.9 Major depressive disorder, single episode, unspecified; F17.200 Nicotine dependence, unspecified, uncomplicated; Z96.41 Presence of insulin pump (external) (internal); Z79.3 Long term (current) use of hormonal contraceptives; Z79.51 Long term (current) use of inhaled steroids; Z79.82 Long term (current) use of aspirin; Z79.84 Long term (current) use of oral hypoglycemic drugs; Z79.899 Other long term (current) drug therapy

== ENCOUNTER 2016-11-05 11:10 | Inpatient (IN) | payer OTHER ==
[~2016-11-05] VITALS: Ht 157.5 cm; Wt 98.4 kg
[~2016-11-05 11:10] MED LIST changes: -ALBU1AER9; +AMT25 PO; -ENAL1TAB34 PO; +ETONMIS VAGRING; +FLUT1INH INH; -FLUT50SP14 NAE; +GLC/500 PO; -GLUCAGON; +IMT100 PO; -INSDGIPEN SC; -INSU100I10 SC; -INSU100I17 SC; -INSU1INJ7 SC; +INSUINJ5; +LISI2.5T5 PO; +LORA10CA10 PO; -MOME110A2 IN; -SERT25TA PO; +SERT50TA PO; +VNTHFA/IN INH
[2016-11-05] MEDS ORDERED: ETON1IMP2 SUBD (12:20)
[2016-11-05] MEDS ORDERED: ALBUTEROL HFA 8 GM INHALER INH PRN (12:45)
[2016-11-05] MEDS ORDERED: GLUCOSE 10 TABS/TUBE PO PRN (13:00)
[2016-11-05] MEDS ORDERED: GLUCOSE 40% GEL 15 GM TUBE PO PRN (13:00)
[2016-11-05] MEDS ORDERED: GLUCAGON FOR INJ 1 MG VIAL SQ PRN (13:00)
[2016-11-05] MEDS ORDERED: DEXTROSE 50% 50 ML SYR IV PRN (13:00)
[2016-11-05] MEDS ORDERED: ACETAMINOPHEN 325 MG TAB PO PRN (13:00)
[2016-11-05 13:13] LABS: BASO % 0.6 %; BASO ABS # 0.08 K/uL (0-0.2); COMPLETE YES; EOS % 2.7 %; HEMATOCRIT 40.3 % (37-47); IG% 0.2 %; LYMPH % 22.7 %; LYMPH ABS # 3.18 K/uL (1.2-3.4); MEAN CELL VOLUME 87.2 fL (80-100); MEAN CORPUSCULAR HEMOGLOBIN 30.3 pg (25-34); MEAN CORPUSCULAR HGB CONC 34.7 g/dl (32-36); MEAN PLATELET VOLUME 9.4 fL (7.4-10.4); NEUT % 67.8 %; PLATELET COUNT 368 K/uL (130-400); RED BLOOD COUNT 4.62 M/uL (4.2-5.4); WHITE BLOOD COUNT 14.02 K/uL (4.8-10.8)
[2016-11-05 13:29] LABS: CALCIUM 9.3 mg/dl (8.5-10.1); POTASSIUM 4.1 mmol/L (3.5-5.1)
[2016-11-05] MEDS ORDERED: PHARMACY GLYCEMIC MGMT CONSULT PRN (13:37)
[2016-11-05] MEDS ORDERED: INSULIN PROTOCOL GOAL RANGE ONE (13:45)
[2016-11-05] MEDS ORDERED: MODERATE STRESS LEVEL ONE (13:45)
[2016-11-05] MEDS ORDERED: INSULIN IV INFUSION PROTOCOL SCH (14:00)
--- NOTE | 2016-11-05 14:26 | Pharmacy Progress Note ---
Glycemic Control Intl Consult Date of Service Nov 05, 2016. Scope Glycemic Pharmacist consulted by Dr Colvin on 11/05 for glycemic control and to write orders per [facility] inpatient glycemic control protocol Objective Weight (Kilograms): 99.500 Accuchecks BSG (last 24hrs): Test 11/05/16 13:00 Random Glucose 271 mg/dl (70-99) Laboratory Data (last 24hrs) Test 11/05/16 13:00 Anion Gap 6.0 mmol/L BUN/Creatinine Ratio 12.0 Blood Urea Nitrogen 12 mg/dl Creatinine 1.00 mg/dl Potassium Level 4.1 mmol/L Sodium Level 136 mmol/L White Blood Count 14.02 K/uL Red Blood Count 4.62 M/uL Hemoglobin 14.0 g/dL Hematocrit 40.3 % Mean Corpuscular Volume 87.2 fL Mean Corpuscular Hemoglobin 30.3 pg Mean Corpuscular Hemoglobin Concent 34.7 g/dl Platelet Count 368 K/uL Mean Platelet Volume 9.4 fL Neutrophils (%) (Auto) 67.8 % Lymphocytes (%) (Auto) 22.7 % Monocytes (%) (Auto) 6.0 % Eosinophils (%) (Auto) 2.7 % Basophils (%) (Auto) 0.6 % Neutrophils # (Auto) 9.51 K/uL Lymphocytes # (Auto) 3.18 K/uL Monocytes # (Auto) 0.84 K/uL Eosinophils # (Auto) 0.38 K/uL Basophils # (Auto) 0.08 K/uL Recent Pertinent Medications Outpatient Anti-diabetic Regimen: * Apidra insulin pump (confirmed from CDE note during last visit) * Basal 23.45 units * CF 32 * CR 8.6 ? * A1c = 7.9 % 11/03/16 Risk Factors for Insulin Resistance: * Steroids: Solu-medrol 1 gm IV daily x 3 days Assessment & Plan ASSESSMENT: * 26 y/o female with type 1 diabetes, managed on an insulin pump as an outpatient, now admitted to receive high-dose steroids for an MS flare * I spoke with Dr. Colvin regarding the best plan for her with the high-dose steroids. I recommended to start an insulin drip for at least 24 hours since it will be difficult to titrate her pump. After 24 hours of a drip, we can then see how much she is requiring and determine if resuming her pump is appropriate or if she should just stay on the drip for the duration of the steroids. * To prevent constant adjustment of the drip, will have a wider goal range of 100-180 PLAN FOR INPATIENT GLYCEMIC CONTROL: * Starting IV insulin infusion per moderate stress protocol for most appropriate control of BSGs while on high-dose steroids * Goal Range 100 - 180 mg/dl * Discontinue insulin pump when insulin infusion initiated * Reassess needs after ~24 hours to determine if pump can be resumed * Please note that the plan above was derived based on current level of insulin resistance and hospital stress. These recommendations are appropriate for inpatient admission only. Plan of care upon discharge will need to be reassessed to avoid potential outpatient hypo/hyperglycemia. Thank you.
[2016-11-05 14:28] LABS: URINE APPEARANCE CLEAR (CLEAR); URINE BILIRUBIN NEG (NEG); URINE COLOR YELLOW; URINE EPITHELIAL CELL AUTO >30 /lpf (0-5); URINE NITRITE NEG (NEG); URINE SPECIFIC GRAVITY 1.027 (1.000-1.030); UROBILINOGEN NEG (NEG); ZZUR CULT IF INDIC CLEAN CATCH NO
[2016-11-05 14:30] LABS: MANUAL MICROSCOPIC REQUIRED? NO; REVIEW REQ? NO
[2016-11-05 14:58] VITALS: BP 125/76; PULSE 93; TEMP 36.9; O2SAT 98
--- NOTE | 2016-11-05 15:01 | History and Physical ---
History & Physical Date & Time of Service: Nov 05, 2016 at 14:37 Chief Complaint: Multiple Sclerosis, Type 1 Diabetes Mellitus Primary Care Physician: Luis Laws D.O. History of Present Illness Source: patient, family, hospital records This is a 26 year old female with a PMH of type 1 DM with an insulin pump, recent diagnosis of MS, tobacco use disorder, hx. of migraines - was here at [facility] on November 04 with new diagnosis of MS. Suggested to receive steroids at that time (IV to PO) but she left the hospital. She called Dr. Mosquera, [facility] hospitalist, multiple times on 11/04 asking about outpatient steroids. As per discussion with Dr. Mosquera, she states that the recommendation was to have 3 days of IV steroids; but patient did not want this done inpatient and wanted it to be done as an outpatient. Main concerns raised by hospitalist team is that patient is a type 1 diabetic who will receive high dose of steroids, which will cause elevation of sugars. Her main symptoms include muscle twitching and weakness. Denies fevers/chills. Past Medical/Surgical History Medical Problems: (1) Asthma Status: Chronic (2) Bronchitis Status: Resolved (3) Diabetes Status: Chronic (4) MS (multiple sclerosis) Status: Chronic (5) Multiple sclerosis Status: Chronic Family History Cancer Diabetes mellitus Heart disease Hypertension Kidney disease Kidney stones Seizures Social History Smoking Status: Current Every Day Smoker Marital Status: single, in relationship Occupational Status: unemployed Allergies Coded Allergies: Aspirin (Verified Allergy, Intermediate, hives and swelling , 11/05/16) per pt Home Medications Scheduled Amitriptyline HCl (Amitriptyline HCl), 25 MG PO DAILY Etonogestrel (Nexplanon), 1 EA SUBD [id number] Fluticasone Furoate-Vilanterol (Breo Ellipta), 1 PUFF INH DAILY Lisinopril (Lisinopril), 2.5 MG PO DAILY Loratadine (Loratadine), 10 MG PO DAILY Metformin Hcl (Glucophage), 2,000 MG PO DAILY Sertraline (Zoloft), 50 MG PO DAILY Sumatriptan Succinate (Imitrex), 100 MG PO PRN Scheduled PRN Albuterol Hfa (Ventolin Hfa), 2-4 PUFFS INH DAILY PRN for SOB/Wheezing Miscellaneous Medications Insulin Glulisine (Apidra) Review of Systems Constitutional: + weakness, No fever, No chills, No sweats Respiratory: No cough, No sputum, No shortness of breath, No dyspnea on exertion Cardiovascular: No chest pain, No edema, No palpitations Musculoskeletal: + muscle pain Genitourinary - Female: No dysuria, No urinary frequency, No urinary urgency, No urinary incontinence, No urinary retention, No hematuria Neurologic: + weakness, No numbness/tingling Psychiatric: No depression symptoms, No anxiety, No insomnia Endocrine: + fatigue Allergic / Immunologic: No environmental allergies, No seasonal allergies Physical Exam Vital Signs Date Time Temp Pulse Resp B/P (MAP) Pulse Ox O2 Delivery O2 Flow Rate FiO2 11/05/16 13:45 92 18 123/68 98 Room Air 11/05/16 11:12 36.8 117 16 140/83 96 Room Air General Appearance: no apparent distress Head: normocephalic, atraumatic ENT: hearing grossly normal Respiratory/Chest: chest non-tender, lungs clear, normal breath sounds, no respiratory distress, no accessory muscle use Cardiovascular: regular rate, rhythm, no edema, no murmur Abdomen/GI: normal bowel sounds, non tender, soft Extremities/Musculoskelatal: + pertinent finding (muscle weakness) Diagnostics Laboratory Results Results Past 24 Hours Test 11/05/16 00:00 11/05/16 13:00 Range/Units Urine Color YELLOW Urine Appearance CLEAR CLEAR Urine pH 8.0 4.5-7.5 Urine Specific [place] 1.027 1.000-1.030 Urine Protein NEG NEG Urine Glucose (UA) 3+ NEG Urine Ketones NEG NEG Urine Occult Blood NEG NEG Urine Nitrite NEG NEG Urine Bilirubin NEG NEG Urine Urobilinogen NEG NEG Urine Leukocyte Esterase TRACE NEG Urine WBC (Auto) 1-5 0-5 /hpf Urine RBC (Auto) 0-4 0-4 /hpf Urine Hyaline Casts (Auto) 0 0-5 /lpf Urine Epithelial Cells (Auto) >30 0-5 /lpf Urine Bacteria (Auto) NEG NEG Urine Test NEG NEG White Blood Count 14.02 4.8-10.8 K/uL Red Blood Count 4.62 4.2-5.4 M/uL Hemoglobin 14.0 12.0-16.0 g/dL Hematocrit 40.3 37-47 % Mean Corpuscular Volume 87.2 80-100 fL Mean Corpuscular Hemoglobin 30.3 25-34 pg Mean Corpuscular Hemoglobin Concent 34.7 32-36 g/dl Platelet Count 368 130-400 K/uL Mean Platelet Volume 9.4 7.4-10.4 fL Neutrophils (%) (Auto) 67.8 % Lymphocytes (%) (Auto) 22.7 % Monocytes (%) (Auto) 6.0 % Eosinophils (%) (Auto) 2.7 % Basophils (%) (Auto) 0.6 % Neutrophils # (Auto) 9.51 1.4-6.5 K/uL Lymphocytes # (Auto) 3.18 1.2-3.4 K/uL Monocytes # (Auto) 0.84 0.11-0.59 K/uL Eosinophils # (Auto) 0.38 0-0.5 K/uL Basophils # (Auto) 0.08 0-0.2 K/uL RDW Standard Deviation 42.4 36.4-46.3 fL RDW Coefficient of Variation 13.2 11.5-14.5 % Immature Granulocyte % (Auto) 0.2 % Immature Granulocyte # (Auto) 0.03 0.00-0.02 K/uL Sodium Level 136 136-145 mmol/L Potassium Level 4.1 3.5-5.1 mmol/L Chloride Level 105 98-107 mmol/L Carbon Dioxide Level 25 21-32 mmol/L Anion Gap 6.0 3-11 mmol/L Blood Urea Nitrogen 12 7-18 mg/dl Creatinine 1.00 0.60-1.20 mg/dl Est Creatinine Clear Calc Drug Dose 93.2 ml/min Estimated GFR () 89.4 Estimated GFR (Non- 77.2 BUN/Creatinine Ratio 12.0 10-20 Random Glucose 271 70-99 mg/dl Calcium Level 9.3 8.5-10.1 mg/dl Diagnostic Radiology CERVICAL SPINE COMBO HISTORY: Neuropathy demyelinating disease TECHNIQUE: Multiplanar multisequence MRI of the cervical spine was performed both before and after the use of intravenous contrast. COMPARISON STUDY: None. FINDINGS: Signal characteristics of the vertebral bodies as well as intervertebral this are unremarkable. The sagittal images suggest a focus of potential demyelination posterior to the C3 level measuring 8 x 4 mm. A second focus of increased signal is noted posterior to the C6-C7 level measuring 3 mm. There is no evidence for postcontrast enhancement on the sagittal images. There is evidence for moderate mid to upper cervical adenopathy. Multiple nodes in the right as well as left cervical chains are present with right-sided nodes measuring to 1.5 cm and left nodes measured 1.2 cm. There is no evidence for abnormal enhancement characteristics of the cervical spine or cord. C2-C3: No significant central canal or neural foraminal narrowing. C3-C4: No significant central canal or neural foraminal narrowing. C4-C5: No significant central canal or neural foraminal narrowing. C5-C6: No significant central canal or neural foraminal narrowing. C6-C7: No significant central canal or neural foraminal narrowing. C7-T1: No significant central canal or neural foraminal narrowing. IMPRESSION: 1. Foci of increased signal involving the right lateral column of the cervical cord at C3 and C5-C6 2. No evidence for abnormal postcontrast enhancement. 3. This appearance is suggestive of a demyelinating disorder 4. No evidence of disc herniation or spinal stenosis. 5. Upper cervical adenopathy, unknown etiology. Considerations include reactive cervical adenitis versus an entity such as lymphoma Impression Assessment and Plan This is a 26 year old female with a PMH of type 1 DM with an insulin pump, recent diagnosis of MS, tobacco use disorder, hx. of migraines - was here at [facility] on November 04 with new diagnosis of MS MS with possible flare Cervical CT IMPRESSION: 1. Foci of increased signal involving the right lateral column of the cervical cord at C3 and C5-C6 2. No evidence for abnormal postcontrast enhancement. 3. This appearance is suggestive of a demyelinating disorder 4. No evidence of disc herniation or spinal stenosis. 5. Upper cervical adenopathy, unknown etiology. Considerations include reactive cervical adenitis versus an entity such as lymphoma solu-medrol 1gram x3 days - as per neuro? may need PT/OT for the wrist/complex case manager strength, etc. will consult neurology for further input steroid taper as per neuro Type 1 DM on an insulin pump we will stop the insulin pump now started on high dose IV steroids start IV insulin infusion after discussion with pharmacy glycemic control check BSGs hourly for now Tobacco Use Disorder nicotine patch Depression/Anxiety continue home medications FULL CODE VTE Prophylaxis VTE Risk Assessment Done? Y/N: Yes Risk Level: Low Given or contraindicated: Treatment not indicated
[2016-11-05] MEDS ORDERED: INSULIN HUMAN REGULAR IV BOLUS 2.5 UNIT in SYRINGE 0 ML IV SCH (15:30)
--- NOTE | 2016-11-05 15:39 | Neurology Consultation ---
Neurology Consultation Date of Service Nov 05, 2016. Neurology Consultation This is essentially a readmission of this 26 cecilia old woman with longstanding type 1 diabetes on a pump and with some dysthyroidism and other medical issues as outlined on the current admission note. I refer the reader to that for further details and medications Airam presents with a several week history of episodic cramping of her right hand and was worked up for tias seizures etc as per the recent hosptial records, Imaging is consistent with a demelinating process with some enhancing areas as well as areas that may well be more chronic in the supratentorial compartment, infratentorial compartment and in the right cerrvical cord as outlined in detail in the radiology reports I have reviewed these images on several occasions and agree with the diffenential that at one time included metstatic disease but this has been excluded and labs show an unexplained variable leukocytosis, a mild elevation of the esr to 28 and csf shows 17 wbc monocyte predominant a normal protein and a normal glucose with thus far negative cytology and analysis for infection. Exam today is essentially normal save for bilateral up going toes and a single observed episode of right hand contracture with no repetetive muscular activity to suggest focal motor seizures and with a negative prior eeg ( not recorded while patient was having a contracture however ). The working diagnosis is demyelinating disease likely of the ms type with a adem picture felt to be much less likely. She is here now for inpatient iv solumedrol 100-mg daily for a foreshortened three day course ( due to work issues and need for inpatient management of her diabetes while on high dose steroids ) and then perhaps a rapid oral taper of 80g dropping to 0 mg by 20 mg decrements over an 8 day cycle If glucose control is acceptable This oral course is in myh opinion optional if she continues to have minimal findings on exam. She will need a follow up in clinic in two weeks and a discussion of fpc management depending on the results of still pending laboratory and specifically csf results. Dr Mireles will be assuming the service tomorrow and this note will be available along with the prior records that have been summarized by Dr Colvin and the abobe plans have been reviewed both with him and with Dr Mosquera who will be assuming the patient's care tomorrow I believe Bashir Whitney MD Addendum: The cause of the focal spasmodic contracture of the right hand remain unestablished and a normal eeg would not exclude seizures The lesions in the right lateral cord may be producing some spasms but overall the exam between events is normal and the lesion in the left frontal cortex may be a source but if so might be causing a very localized cortical seizure We will observe for now in hopes that the steroids will have a positive effect but we may need to consider a trial of baclofen or even tegretol or keppra if these events continue The source iof the elevated wbc and minimally elevated esr is also a mystery but in the past as an outpatient she has had some documented low level leukocytosis and at present there is no evidence for an active infectious process or symptoms of such a process She may need this evaluated again but the counts will undoubtedly rise with the steroids and will not be a reliable marker for several weeks Bashir Whitney MD
[2016-11-05] MEDS: SODIUM CHLORIDE 0.9% 1000ML 1,000 ML IV SCH (15:44)
[2016-11-05] MEDS: INSULIN REGULAR 250 UNITS in SODIUM CHLORIDE 0.9% 250ML 250 ML IV SCH ×6 (15:52→23:37)
--- NOTE | 2016-11-05 15:55 | EMERGENCY ROOM VISIT NOTE ---
History Report prepared by Lennox: Fritz Zimmer Under the Supervision of: Dr. Kenny Cortez D.O. First contact with patient: 12:08 Chief Complaint: ILLNESS Stated Complaint: MS History of Present Illness The patient is a 26 year old female who presents to the Emergency Room to receive IV steroid treatment. The patient was hospitalized for the past three days for right sided muscle spasms. Yesterday, she was discharged home. After discharge, she talked to Dr. Mosquera, hospitalist with [facility], who instructed her to come to the hospital to receive IV steroids. She was told that she will need to be hospitalized over the weekend. The patient was recently diagnosed with MS. She has insulin dependent diabetes. She currently denies any pain. She denies fevers, chills, or any other complaints. Source of History: patient Position: other (global) Symptom Intensity: No pain Quality: other (to receive IV steroid treatment) Associated Symptoms: No fevers, No chills Review of Systems See HPI for pertinent positives & negatives. A total of 10 systems reviewed and were otherwise negative. Past Medical & Surgical Medical Problems: (1) Asthma (2) Bronchitis (3) Diabetes (4) MS (multiple sclerosis) (5) Multiple sclerosis (6) Type 1 diabetes mellitus Family History Cancer Diabetes mellitus Heart disease Hypertension Kidney disease Kidney stones Seizures Social History Smoking Status: Current Every Day Smoker Alcohol Use: occasionally Marital Status: single, in relationship Occupation Status: unemployed Current/Historical Medications Scheduled Amitriptyline HCl (Amitriptyline HCl), 25 MG PO DAILY Etonogestrel (Nexplanon), 1 EA SUBD [id number] Fluticasone Furoate-Vilanterol (Breo Ellipta), 1 PUFF INH DAILY Lisinopril (Lisinopril), 2.5 MG PO DAILY Loratadine (Loratadine), 10 MG PO DAILY Metformin Hcl (Glucophage), 2,000 MG PO DAILY Sertraline (Zoloft), 50 MG PO DAILY Sumatriptan Succinate (Imitrex), 100 MG PO PRN Scheduled PRN Albuterol Hfa (Ventolin Hfa), 2-4 PUFFS INH DAILY PRN for SOB/Wheezing Miscellaneous Medications Insulin Glulisine (Apidra) Allergies Coded Allergies: Aspirin (Verified Allergy, Intermediate, hives and swelling , 11/05/16) per pt Physical Exam Vital Signs Date Time Temp Pulse Resp B/P (MAP) Pulse Ox O2 Delivery O2 Flow Rate FiO2 11/05/16 11:12 36.8 117 16 140/83 96 Room Air Physical Exam CONSTITUTIONAL/VITAL SIGNS: Reviewed / noted above. GENERAL: Non-toxic in appearance. INTEGUMENTARY: Warm, dry, and [place]. HEAD: Normocephalic. EYES: without scleral icterus or trauma. ENT/OROPHARYNX: clear and moist. LYMPHADENOPATHY/NECK: Is supple without lymphadenopathy or meningismus. RESPIRATORY: Lungs clear and equal. CARDIOVASCULAR: Regular rate and rhythm. GI/ABDOMEN: Soft and nontender. No organomegaly or pulsatile mass. No rebound or guarding. Normal bowel sounds. EXTREMITIES: Warm and well perfused. BACK: No CVA tenderness. NEUROLOGICAL: Intact without focal deficits. PSYCHIATRIC: normal affect. MUSCULOSKELETAL: Normally developed with good muscle tone. Medical Decision & Procedures Laboratory Results 11/05/16 13:00 Red Blood Count 4.62, Mean Corpuscular Volume 87.2, Mean Corpuscular Hemoglobin 30.3, Mean Corpuscular Hemoglobin Concent 34.7, Mean Platelet Volume 9.4, Neutrophils (%) (Auto) 67.8, Lymphocytes (%) (Auto) 22.7, Monocytes (%) (Auto) 6.0, Eosinophils (%) (Auto) 2.7, Basophils (%) (Auto) 0.6, Neutrophils # (Auto) 9.51, Lymphocytes # (Auto) 3.18, Monocytes # (Auto) 0.84, Eosinophils # (Auto) 0.38, Basophils # (Auto) 0.08 11/05/16 13:00 Test 11/05/16 00:00 11/05/16 13:00 Urine Color YELLOW Urine Appearance CLEAR (CLEAR) Urine pH 8.0 (4.5-7.5) Urine Specific [place] 1.027 (1.000-1.030) Urine Protein NEG (NEG) Urine Glucose (UA) 3+ (NEG) Urine Ketones NEG (NEG) Urine Occult Blood NEG (NEG) Urine Nitrite NEG (NEG) Urine Bilirubin NEG (NEG) Urine Urobilinogen NEG (NEG) Urine Leukocyte Esterase TRACE (NEG) Urine WBC (Auto) 1-5 /hpf (0-5) Urine RBC (Auto) 0-4 /hpf (0-4) Urine Hyaline Casts (Auto) 0 /lpf (0-5) Urine Epithelial Cells (Auto) >30 /lpf (0-5) Urine Bacteria (Auto) NEG (NEG) Urine Test NEG (NEG) White Blood Count 14.02 K/uL (4.8-10.8) Red Blood Count 4.62 M/uL (4.2-5.4) Hemoglobin 14.0 g/dL (12.0-16.0) Hematocrit 40.3 % (37-47) Mean Corpuscular Volume 87.2 fL (80-100) Mean Corpuscular Hemoglobin 30.3 pg (25-34) Mean Corpuscular Hemoglobin Concent 34.7 g/dl (32-36) Platelet Count 368 K/uL (130-400) Mean Platelet Volume 9.4 fL (7.4-10.4) Neutrophils (%) (Auto) 67.8 % Lymphocytes (%) (Auto) 22.7 % Monocytes (%) (Auto) 6.0 % Eosinophils (%) (Auto) 2.7 % Basophils (%) (Auto) 0.6 % Neutrophils # (Auto) 9.51 K/uL (1.4-6.5) Lymphocytes # (Auto) 3.18 K/uL (1.2-3.4) Monocytes # (Auto) 0.84 K/uL (0.11-0.59) Eosinophils # (Auto) 0.38 K/uL (0-0.5) Basophils # (Auto) 0.08 K/uL (0-0.2) RDW Standard Deviation 42.4 fL (36.4-46.3) RDW Coefficient of Variation 13.2 % (11.5-14.5) Immature Granulocyte % (Auto) 0.2 % Immature Granulocyte # (Auto) 0.03 K/uL (0.00-0.02) Anion Gap 6.0 mmol/L (3-11) Est Creatinine Clear Calc Drug Dose 93.2 ml/min Estimated GFR () 89.4 Estimated GFR (Non- 77.2 BUN/Creatinine Ratio 12.0 (10-20) Calcium Level 9.3 mg/dl (8.5-10.1) ED Course 1208: Previous medical records were reviewed. The patient was evaluated in room B02. A complete history and physical examination was performed. 1215: I discussed the results and findings with the patient. She verbalized agreement of the treatment plan. I spoke with Dr. Colvin of the [facility] Service. The patient will be evaluated for further management and care. Medical Decision Differential includes acute coronary syndrome, myocardial infarction, CVA, TIA, anemia, infection, pneumonia, UTI, pyelonephritis, poor nutrition, dehydration, electrolyte disturbance,hypoglycemia. Medication Reconciliation: I attest that I have personally reviewed the patient' s current medication list. Patient was found to have a slightly elevated blood pressure due to circumstances. I do not believe that the patient requires hypertension monitoring. This is a 26-year-old female who was told to return to the emergency department today by Dr. Mosquera yesterday. She is to be admitted over the weekend for IV steroids for MS. The patient is an insulin-dependent diabetic. The patient denies any significant symptoms at that time but has been having some issues with her right side of her body. Her exam today is normal. Vital signs are stable. After evaluating the patient, did speak with the hospitalist. He was aware of the patient and is going to write admission orders for the patient. Consults Time Called: 1214 [facility]ing Physician[facility] Returned Call: [address] Colvin of the [facility] Service. Impression Primary Impression: MS (multiple sclerosis) Scribe Attestation The scribe's documentation has been prepared under my direction and personally reviewed by me in its entirety. I confirm that the note above accurately reflects all work, treatment, procedures, and medical decision making performed by me. Departure Information Dispostion Being Evaluated By Hospitalist Referrals Luis Laws D.O. (PCP) Patient Instructions My [facility]
[2016-11-05 16:00] VITALS: O2SAT 98
[2016-11-05] MEDS ORDERED: BREO ~ ORDER AWAITING ACTION SCH (16:00)
[2016-11-05] MEDS: METHYLPREDNISOLONE IV 1,000 MG in DEXTROSE 5% 250ML 250 ML IV SCH (16:21)
[2016-11-05] MEDS: NICOTINE 21 MG/24 HR TDSY TD SCH (16:23)
[2016-11-05] MEDS ORDERED: LORAZEPAM 1 MG TAB PO PRN (16:45)
[2016-11-05] MEDS ORDERED: NURSING VERBAL MED ORDER ONE (17:45)
[2016-11-05 18:29] VITALS: BP 125/76; PULSE 93; TEMP 36.9; O2SAT 98; Ht 157.5 cm; Wt 98.4 kg
[2016-11-05] MEDS: INSULIN ASPART 100 UNITS/ML 3 ML PEN SC SCH ×2 (18:45→21:31)
[2016-11-05 20:00] VITALS: O2SAT 98
[2016-11-06 00:07] VITALS: BP 134/72; PULSE 107; TEMP 36.8; O2SAT 98
[2016-11-06] MEDS: INSULIN REGULAR 250 UNITS in SODIUM CHLORIDE 0.9% 250ML 250 ML IV SCH ×11 (00:37→16:35)
[2016-11-06] MEDS: SODIUM CHLORIDE 0.9% 1000ML 1,000 ML IV SCH ×2 (01:29→13:30)
[2016-11-06 04:20] VITALS: BP 106/64; PULSE 108; TEMP 36.8; O2SAT 98
[2016-11-06 07:15] VITALS: BP 123/73; PULSE 89; TEMP 36.8; O2SAT 95
[2016-11-06] MEDS: FLUTICASONE FUROATE VILANTEROL INH SCH (07:23)
[2016-11-06] MEDS: AMITRIPTYLINE HCL 25 MG TAB PO SCH (07:24)
[2016-11-06] MEDS: SERTRALINE HCL 50 MG TAB PO SCH (07:25)
[2016-11-06] MEDS: LISINOPRIL 2.5 MG TAB PO SCH (07:26)
[2016-11-06] MEDS: NICOTINE 21 MG/24 HR TDSY TD SCH (07:29)
[2016-11-06 07:45] LABS: HEMATOCRIT 39.9 % (37-47); MEAN CELL VOLUME 85.4 fL (80-100); MEAN CORPUSCULAR HEMOGLOBIN 29.3 pg (25-34); MEAN CORPUSCULAR HGB CONC 34.3 g/dl (32-36); MEAN PLATELET VOLUME 9.1 fL (7.4-10.4); PLATELET COUNT 420 K/uL (130-400); RED BLOOD COUNT 4.67 M/uL (4.2-5.4); WHITE BLOOD COUNT 21.66 K/uL (4.8-10.8)
[2016-11-06 08:14] LABS: BUN/CREATININE RATIO 17.5 (10-20); CALCIUM 8.7 mg/dl (8.5-10.1); CREATININE 0.84 mg/dl (0.60-1.20); POTASSIUM 4.2 mmol/L (3.5-5.1)
[2016-11-06] MEDS: INSULIN ASPART 100 UNITS/ML 3 ML PEN SC SCH ×4 (08:32→20:33)
--- NOTE | 2016-11-06 11:56 | Neurology Progress Notes ---
Neurology Progress Note Date of Service Nov 06, 2016. Subjective Pt feels she is doing well. No episodes of R hand or foot spasm since she has received a dose of IV Solumedrol. She feels she has mild residual weakness of the RUE. Per pt blood sugars have been controlled. Objective Date Time Temp Pulse Resp B/P (MAP) Pulse Ox O2 Delivery O2 Flow Rate FiO2 11/06/16 08:00 Room Air 11/06/16 07:15 36.8 89 18 123/73 (90) 95 11/06/16 04:20 36.8 108 20 106/64 (78) 98 Room Air 11/06/16 04:00 Room Air 11/06/16 00:07 36.8 107 20 134/72 (92) 98 Room Air 11/06/16 00:00 Room Air 11/05/16 20:00 98 Room Air 11/05/16 18:29 36.9 93 20 125/76 98 Room Air 11/05/16 16:00 98 Room Air 11/05/16 14:58 36.9 93 20 125/76 (92) 98 Room Air 11/05/16 13:45 92 18 123/68 98 Room Air Last 24 Hours Test 11/05/16 13:00 11/05/16 16:46 11/05/16 17:07 11/05/16 17:28 White Blood Count 14.02 K/uL Red Blood Count 4.62 M/uL Hemoglobin 14.0 g/dL Hematocrit 40.3 % Mean Corpuscular Volume 87.2 fL Mean Corpuscular Hemoglobin 30.3 pg Mean Corpuscular Hemoglobin Concent 34.7 g/dl Platelet Count 368 K/uL Mean Platelet Volume 9.4 fL Neutrophils (%) (Auto) 67.8 % Lymphocytes (%) (Auto) 22.7 % Monocytes (%) (Auto) 6.0 % Eosinophils (%) (Auto) 2.7 % Basophils (%) (Auto) 0.6 % Neutrophils # (Auto) 9.51 K/uL Lymphocytes # (Auto) 3.18 K/uL Monocytes # (Auto) 0.84 K/uL Eosinophils # (Auto) 0.38 K/uL Basophils # (Auto) 0.08 K/uL RDW Standard Deviation 42.4 fL RDW Coefficient of Variation 13.2 % Immature Granulocyte % (Auto) 0.2 % Immature Granulocyte # (Auto) 0.03 K/uL Sodium Level 136 mmol/L Potassium Level 4.1 mmol/L Chloride Level 105 mmol/L Carbon Dioxide Level 25 mmol/L Anion Gap 6.0 mmol/L Blood Urea Nitrogen 12 mg/dl Creatinine 1.00 mg/dl Est Creatinine Clear Calc Drug Dose 93.2 ml/min Estimated GFR () 89.4 Estimated GFR (Non- 77.2 BUN/Creatinine Ratio 12.0 Random Glucose 271 mg/dl Calcium Level 9.3 mg/dl Bedside Glucose 82 mg/dl 78 mg/dl 190 mg/dl Test 11/05/16 18:26 11/05/16 20:19 11/05/16 22:27 11/05/16 23:30 Bedside Glucose 153 mg/dl 140 mg/dl 268 mg/dl 302 mg/dl Test 11/06/16 00:28 11/06/16 02:22 11/06/16 04:24 11/06/16 05:25 Bedside Glucose 289 mg/dl 272 mg/dl 189 mg/dl 155 mg/dl Test 11/06/16 06:21 11/06/16 07:05 11/06/16 07:24 11/06/16 08:23 Bedside Glucose 131 mg/dl 141 mg/dl 195 mg/dl White Blood Count 21.66 K/uL Red Blood Count 4.67 M/uL Hemoglobin 13.7 g/dL Hematocrit 39.9 % Mean Corpuscular Volume 85.4 fL Mean Corpuscular Hemoglobin 29.3 pg Mean Corpuscular Hemoglobin Concent 34.3 g/dl RDW Standard Deviation 40.2 fL RDW Coefficient of Variation 12.8 % Platelet Count 420 K/uL Mean Platelet Volume 9.1 fL Sodium Level 137 mmol/L Potassium Level 4.2 mmol/L Chloride Level 107 mmol/L Carbon Dioxide Level 24 mmol/L Anion Gap 6.0 mmol/L Blood Urea Nitrogen 15 mg/dl Creatinine 0.84 mg/dl Est Creatinine Clear Calc Drug Dose 110.3 ml/min Estimated GFR () 110.4 Estimated GFR (Non- 95.3 BUN/Creatinine Ratio 17.5 Random Glucose 136 mg/dl Calcium Level 8.7 mg/dl Test 11/06/16 09:29 11/06/16 10:30 11/06/16 11:23 Bedside Glucose 282 mg/dl 265 mg/dl 247 mg/dl Exam: Pt is awake and alert, nml speech and language. Nml visual stevenson, EOMI, nml facial symmetry. Motor, nml bulk and tone, mild decrease in R planner scheduler strength. No drift, nml DARYA. Reflexes are nonpathologic. FNF, HS are nml. Gait not tested. Current Inpatient Medications Medications (Trade) Dose Ordered Sig/Bhavana Route Start Time Stop Time Status Last Admin Dose Admin Albuterol (Ventolin Hfa Inhaler) 2 puffs DAILY PRN INH 11/05/16 12:45 12/05/16 12:44 Amitriptyline HCl (Elavil Tab) 25 mg DAILY PO 11/06/16 09:00 12/06/16 08:59 11/06/16 07:24 25 MG Lisinopril (Zestril Tab) 2.5 mg DAILY PO 11/06/16 09:00 12/06/16 08:59 11/06/16 07:26 2.5 MG Sertraline HCl (Zoloft Tab) 50 mg DAILY PO 11/06/16 09:00 12/06/16 08:59 11/06/16 07:25 50 MG Nicotine (Nicoderm Cq 21MG Patch) 1 patch QAM TD 11/06/16 09:00 12/06/16 08:59 11/06/16 07:29 1 PATCH Miscellaneous (Remove Nicoderm Patch) 1 ea HS N/A 11/05/16 21:00 12/05/16 20:59 Sodium Chloride 1,000 ml @ 80 mls/hr [id number] IV 11/05/16 12:57 12/05/16 12:56 11/06/16 01:29 80 MLS/HR Acetaminophen (Tylenol Tab) 650 mg Q4H PRN PO 11/05/16 13:00 12/05/16 12:59 Glucose (Glucose 40% Gel) 15-30 GRAMS 15 GRAMS... UD PRN PO 11/05/16 13:00 12/05/16 12:59 Glucose (Glucose Chew Tab) 4-8 Tablets 4 Tabl... UD PRN PO 11/05/16 13:00 12/05/16 12:59 Dextrose (Dextrose 50% 50ML Syringe) 25-50ML OF 50% DW IV FOR... UD PRN IV 11/05/16 13:00 12/05/16 12:59 11/05/16 17:15 25 ML Glucagon (Glucagon Inj) 1 mg UD PRN SQ 11/05/16 13:00 12/05/16 12:59 Methylprednisolone Sodium Succinate 1000 mg/Dextrose 266 ml @ 250 mls/hr DAILY@1600 IV 11/05/16 16:00 11/07/16 17:04 11/05/16 16:21 250 MLS/HR Miscellaneous Information (Consult Glycemic Management Pharmacy) 1 ea UD PRN N/A 11/05/16 13:37 12/05/16 13:36 Insulin Aspart (novoLOG ASPART) SLIDING SCALE PCHS SC 11/05/16 18:00 12/05/16 18:59 11/06/16 08:32 4 UNITS Insulin Human Regular 250 units/ Sodium Chloride 252.5 ml @ 0 mls/hr DAILY@1130 IV 11/05/16 15:30 12/05/16 15:29 11/06/16 09:34 3.5 MLS/HR Fluticasone/ Vilanterol (Breo Ellipta 100-25 Mcg/Inh) 1 puffs DAILY INH 11/06/16 09:00 12/06/16 08:59 11/06/16 07:23 1 PUFFS Lorazepam (Ativan Tab) 1 mg HS PRN PO 11/05/16 16:45 12/05/16 16:44 Impression Presumed SUPERVISING APPRAISER demyelinating disease. Pt with minimal weakness RUE which is stable. Pt flexor spasms(?) improved with steroids. EEG no electrical evidence of sz.Pt requires inpt monitoring of glucose given Type I DM. Disease modifying tx will be discussed with Dr Whitney as outpt. AKOSUA Mireles MD
[2016-11-06] MEDS ORDERED: INSULIN GLARGINE SOLOSTAR 100 UNITS/ML 3 ML PEN SC ONE ×2 (12:15→21:00)
--- NOTE | 2016-11-06 12:56 | Pharmacy Progress Note ---
Glycemic Control Progress Note Date of Service Nov 06, 2016. Scope Glycemic Pharmacist consulted for glycemic control to write orders per [facility] inpatient glycemic control protocol. Objective Accuchecks BSG (last 24hrs): Test 11/05/16 13:00 11/05/16 16:46 11/05/16 17:07 11/05/16 17:28 Random Glucose 271 mg/dl (70-99) Bedside Glucose 82 mg/dl (70-90) 78 mg/dl (70-90) 190 mg/dl (70-90) Test 11/05/16 18:26 11/05/16 20:19 11/05/16 22:27 11/05/16 23:30 Bedside Glucose 153 mg/dl (70-90) 140 mg/dl (70-90) 268 mg/dl (70-90) 302 mg/dl (70-90) Test 11/06/16 00:28 11/06/16 02:22 11/06/16 04:24 11/06/16 05:25 Bedside Glucose 289 mg/dl (70-90) 272 mg/dl (70-90) 189 mg/dl (70-90) 155 mg/dl (70-90) Test 11/06/16 06:21 11/06/16 07:05 11/06/16 07:24 11/06/16 08:23 Bedside Glucose 131 mg/dl (70-90) 141 mg/dl (70-90) 195 mg/dl (70-90) Random Glucose 136 mg/dl (70-99) Test 11/06/16 09:29 11/06/16 10:30 11/06/16 11:23 Bedside Glucose 282 mg/dl (70-90) 265 mg/dl (70-90) 247 mg/dl (70-90) Recent Pertinent Medications Outpatient Anti-diabetic Regimen: * Apidra insulin pump (confirmed from CDE note during last visit) * Basal 23.45 units * CF 32 * CR 8.6 ? * A1c = 7.9 % 11/03/16 Risk Factors for Insulin Resistance: * Steroids: Solu-medrol 1 gm IV daily x 3 days Assessment & Plan ASSESSMENT: 11/05 * 26 y/o female with type 1 diabetes, managed on an insulin pump as an outpatient, now admitted to receive high-dose steroids for an MS flare * I spoke with Dr. Colvin regarding the best plan for her with the high-dose steroids. I recommended to start an insulin drip for at least 24 hours since it will be difficult to titrate her pump. After 24 hours of a drip, we can then see how much she is requiring and determine if resuming her pump is appropriate or if she should just stay on the drip for the duration of the steroids. * To prevent constant adjustment of the drip, will have a wider goal range of 100-180 7 * Patient continues on an insulin drip with rates ranging from 2.1 to 3.5 units/ hr * BSGs stable overnight but increasing after po intake - most likely from not enough carb coverage while steroids on board * I spoke with the patient's nurse this AM. Would like to transition off the drip so patient not being checked hourly for the next 3 days. * Could potentially have patient resume pump and give additional SQ insulin on top of it but I would be concerned about confusion with too many sources of insulin delivery * Will transition to basal/bolus SQ insulin with plans to transition back to pump prior to discharge * Overnight rate of drip was double that of pump basal dose; however, I'm concerned to give this much basal at once. Will instead give 1.5 x basal and order additional dose tonight (to equal 2x basal) should BSGs remain above 250 * Will use tight CF/CR due to steroid's affect on postprandial BSGs. In addition, will order overnight accuchecks x 2 to guide further basal dosing. * Of note, patient wanted nurse to let pharmacy know that Apidra is used in her pump. Novolog (standard fast-acting insulin for [facility]) is an acceptable alternative, only difference is that Apidra has a slightly quicker onset. PLAN FOR INPATIENT GLYCEMIC CONTROL: * Lantus 36 units x 1 now * Give additional 12 units x 1 tonight if BSG > 250 * Lantus 18 units BID starting 7/16 AM * D/C insulin drip 6 hours after 1st Lantus dose * Novolog ACHS + 00,04 * Goal 110-150 * CF 20 * CR 6 * Please note that the plan above was derived based on current level of insulin resistance and hospital stress. These recommendations are appropriate for inpatient admission only. Plan of care upon discharge will need to be reassessed to avoid potential outpatient hypo/hyperglycemia. Thank you.
[2016-11-06 15:07] VITALS: BP 124/72; PULSE 84; TEMP 36.7; O2SAT 95
[2016-11-06] MEDS: METHYLPREDNISOLONE IV 1,000 MG in DEXTROSE 5% 250ML 250 ML IV SCH (15:39)
[2016-11-06 16:00] VITALS: O2SAT 95
--- NOTE | 2016-11-06 17:27 | Progress Note ---
Internal Med Progress Note Date of Service: Nov 06, 2016. Provider Documentation: SUBJECTIVE: pt mentions of feeling fine did not had any hand spasm since starting on IV Solu Medrol on IV insulin gtt for BSG control OBJECTIVE: Vital Signs-as noted below Exam: General-no sign of distress Eyes-sclera non icteric ENT-NAD Neck-no JVD Lungs-CTA Heart-regular Abdomen-soft, non tender Extremities-no lower ext edema Neuro-AAO x3, no focal deficit Lab data as noted below. ASSESSMENT & PLAN: MULTIPLE SCLEROSIS WITH FLARE : recent admission with rt hand spasm MRI of brain shows multiple foci of increase uptake -suggestive of demyelinating disease Cervical CT IMPRESSION: 1. Foci of increased signal involving the right lateral column of the cervical cord at C3 and C5-C6 2. No evidence for abnormal postcontrast enhancement. 3. This appearance is suggestive of a demyelinating disorder 4. No evidence of disc herniation or spinal stenosis. 5. Upper cervical adenopathy, unknown etiology. Considerations include reactive cervical adenitis versus an entity such as lymphoma IV Solu-medrol 1gram x today 3 days - today Day #2 appreciate input form neurology Type 1 DM on an insulin pump started on IV insulin gtt for high dose IV steroids appreciate input form pharmacy glycemic control plan to transition to Lantus and SC Novolog eventually transition to insulin pump upon discharge Tobacco Use Disorder nicotine patch Depression/Anxiety continue home medications DVT PROPHYLAXIS scd and teds ambulate DISPOSITION Discharge home when medically stable Vital Signs: Date Time Temp Pulse Resp B/P (MAP) Pulse Ox O2 Delivery O2 Flow Rate FiO2 11/06/16 16:00 95 Room Air 11/06/16 15:07 36.7 84 18 124/72 (89) 95 11/06/16 12:00 Room Air 11/06/16 08:00 Room Air 11/06/16 07:15 36.8 89 18 123/73 (90) 95 11/06/16 04:20 36.8 108 20 106/64 (78) 98 Room Air 11/06/16 04:00 Room Air 11/06/16 00:07 36.8 107 20 134/72 (92) 98 Room Air 11/06/16 00:00 Room Air 11/05/16 20:00 98 Room Air 11/05/16 18:29 36.9 93 20 125/76 98 Room Air Lab Results: Results Past 24 Hours Test 11/05/16 17:28 11/05/16 18:26 11/05/16 20:19 11/05/16 22:27 Range/Units Bedside Glucose 190 153 140 268 70-90 mg/dl Test 11/05/16 23:30 11/06/16 00:28 11/06/16 02:22 11/06/16 04:24 Range/Units Bedside Glucose 302 289 272 189 70-90 mg/dl Test 11/06/16 05:25 11/06/16 06:21 11/06/16 07:05 11/06/16 07:24 Range/Units Bedside Glucose 155 131 141 70-90 mg/dl White Blood Count 21.66 4.8-10.8 K/uL Red Blood Count 4.67 4.2-5.4 M/uL Hemoglobin 13.7 12.0-16.0 g/dL Hematocrit 39.9 37-47 % Mean Corpuscular Volume 85.4 80-100 fL Mean Corpuscular Hemoglobin 29.3 25-34 pg Mean Corpuscular Hemoglobin Concent 34.3 32-36 g/dl RDW Standard Deviation 40.2 36.4-46.3 fL RDW Coefficient of Variation 12.8 11.5-14.5 % Platelet Count 420 130-400 K/uL Mean Platelet Volume 9.1 7.4-10.4 fL Sodium Level 137 136-145 mmol/L Potassium Level 4.2 3.5-5.1 mmol/L Chloride Level 107 98-107 mmol/L Carbon Dioxide Level 24 21-32 mmol/L Anion Gap 6.0 3-11 mmol/L Blood Urea Nitrogen 15 7-18 mg/dl Creatinine 0.84 0.60-1.20 mg/dl Est Creatinine Clear Calc Drug Dose 110.3 ml/min Estimated GFR () 110.4 Estimated GFR (Non- 95.3 BUN/Creatinine Ratio 17.5 10-20 Random Glucose 136 70-99 mg/dl Calcium Level 8.7 8.5-10.1 mg/dl Test 11/06/16 08:23 11/06/16 09:29 11/06/16 10:30 11/06/16 11:23 Range/Units Bedside Glucose 195 282 265 247 70-90 mg/dl Test 11/06/16 12:31 11/06/16 13:28 11/06/16 14:31 11/06/16 15:29 Range/Units Bedside Glucose 257 251 237 209 70-90 mg/dl Test 11/06/16 16:29 Range/Units Bedside Glucose 220 70-90 mg/dl
[2016-11-06] MEDS ORDERED: DC IV INSULIN INFUSION ONE (18:15)
[2016-11-06 23:25] VITALS: BP 138/85; PULSE 102; TEMP 37; O2SAT 96
[2016-11-07] MEDS: INSULIN ASPART 100 UNITS/ML 3 ML PEN SC SCH ×4 (00:09→12:01)
[2016-11-07] MEDS: SODIUM CHLORIDE 0.9% 1000ML 1,000 ML IV SCH (02:31)
[2016-11-07 07:42] VITALS: BP 112/71; PULSE 94; TEMP 36.9; O2SAT 97
[2016-11-07 08:00] VITALS: O2SAT 97
[2016-11-07] MEDS: NICOTINE 21 MG/24 HR TDSY TD SCH (08:07)
[2016-11-07] MEDS: AMITRIPTYLINE HCL 25 MG TAB PO SCH (08:08)
[2016-11-07] MEDS: SERTRALINE HCL 50 MG TAB PO SCH (08:08)
[2016-11-07] MEDS: FLUTICASONE FUROATE VILANTEROL INH SCH (08:08)
[2016-11-07] MEDS: LISINOPRIL 2.5 MG TAB PO SCH (08:09)
[2016-11-07] MEDS ORDERED: INSULIN GLARGINE SOLOSTAR 100 UNITS/ML 3 ML PEN SC ONE (08:30)
[2016-11-07] MEDS ORDERED: INSULIN GLARGINE SOLOSTAR 100 UNITS/ML 3 ML PEN SC SCH ×2 (09:00→21:00)
--- NOTE | 2016-11-07 11:11 | Pharmacy Progress Note ---
Glycemic Control Progress Note Date of Service Nov 07, 2016. Scope Glycemic Pharmacist consulted for glycemic control to write orders per [facility] inpatient glycemic control protocol. Objective Accuchecks BSG (last 24hrs): Test 11/06/16 11:23 11/06/16 12:31 11/06/16 13:28 11/06/16 14:31 Bedside Glucose 247 mg/dl (70-90) 257 mg/dl (70-90) 251 mg/dl (70-90) 237 mg/dl (70-90) Test 11/06/16 15:29 11/06/16 16:29 11/06/16 17:33 11/06/16 20:09 Bedside Glucose 209 mg/dl (70-90) 220 mg/dl (70-90) 213 mg/dl (70-90) 326 mg/dl (70-90) Test 11/07/16 00:01 11/07/16 04:05 11/07/16 07:37 Bedside Glucose 228 mg/dl (70-90) 165 mg/dl (70-90) 243 mg/dl (70-90) Recent Pertinent Medications Outpatient Anti-diabetic Regimen: * Apidra insulin pump (confirmed from CDE note during last visit and with patient this admission - follows w/ outpatient pharmacist) * Basal 23.45 units * CF 32 * CR 8.6 * A1c = 7.9 % 11/03/16 Risk Factors for Insulin Resistance: * Steroids: Solu-medrol 1 gm IV daily x 3 days for MS flare Assessment & Plan ASSESSMENT: 11/05 * 26 y/o female with type 1 diabetes, managed on an insulin pump as an outpatient, now admitted to receive high-dose steroids for an MS flare * I spoke with Dr. Colvin regarding the best plan for her with the high-dose steroids. I recommended to start an insulin drip for at least 24 hours since it will be difficult to titrate her pump. After 24 hours of a drip, we can then see how much she is requiring and determine if resuming her pump is appropriate or if she should just stay on the drip for the duration of the steroids. * To prevent constant adjustment of the drip, will have a wider goal range of 100-180 11/06 * Patient continues on an insulin drip with rates ranging from 2.1 to 3.5 units/ hr * BSGs stable overnight but increasing after po intake - most likely from not enough carb coverage while steroids on board * I spoke with the patient's nurse this AM. Would like to transition off the drip so patient not being checked hourly for the next 3 days. * Could potentially have patient resume pump and give additional SQ insulin on top of it but I would be concerned about confusion with too many sources of insulin delivery * Will transition to basal/bolus SQ insulin with plans to transition back to pump prior to discharge * Overnight rate of drip was double that of pump basal dose; however, I'm concerned to give this much basal at once. Will instead give 1.5 x basal and order additional dose tonight (to equal 2x basal) should BSGs remain above 250 * Will use tight CF/CR due to steroid's affect on postprandial BSGs. In addition, will order overnight accuchecks x 2 to guide further basal dosing. * Of note, patient wanted nurse to let pharmacy know that Apidra is used in her pump. Novolog (standard fast-acting insulin for [facility]) is an acceptable alternative, only difference is that Apidra has a slightly quicker onset. 11/07 * Patient has been transitioned to SQ basal/bolus insulin. BSGs started to improve overnight but increased again this AM. * Patient received 82 units of SQ in addition to IV insulin yesterday, so she is currently requiring more than double her outpatient dose * I spoke with the patient on the phone this AM because she had a few questions. She is in agreement with the plan to continue the basal/bolus injections and transition back to her pump hopefully tomorrow as long as BSGs are stable enough. * Changes to insulin regimen for today: * Will increase basal to total of 60 units/day - rec'd 53 units of basal/ overnight correctional yesterday * Tighten CF and CR to improve postprandial BSGs PLAN FOR INPATIENT GLYCEMIC CONTROL: * Increase Lantus to 30 units BID * Will place tomorrow's AM dose on hold with plans to hopefully transition back to pump - confirmed that patient has all pump supplies w/ her * Continue Novolog ACHS + 00,04 * Goal 110-150 * CF 15 * CR 5 DISCHARGE RECOMMENDATIONS: * Okay to resume insulin pump and metformin on discharge - depending on BSGs from IV steroids, patient may need a supplemental Lantus or NPH dose tomorrow AM prior to discharge * Patient works closely with a pharmacist-run outpatient diabetes clinic. Recommend continuing this close f/u Thank you.
[2016-11-07] MEDS ORDERED: INSULIN REGULAR 5 UNITS in SYRINGE 4.95 ML IV ONE (12:00)
--- NOTE | 2016-11-07 12:17 | Neurology Progress Notes ---
Neurology Progress Note Date of Service Nov 07, 2016. Subjective Pt doing well, no further spasm RUE or RLE. No new neurologic symptoms. Frustrated by lack of autonomy to use insulin pump and regulate own sugars. Blood sugars have been increased. Objective Date Time Temp Pulse Resp B/P (MAP) Pulse Ox O2 Delivery O2 Flow Rate FiO2 11/07/16 08:00 97 Room Air 11/07/16 07:42 36.9 94 16 112/71 (85) 97 11/07/16 00:00 Room Air 11/06/16 23:25 37.0 102 20 138/85 (102) 96 Room Air 11/06/16 16:00 95 Room Air 11/06/16 15:07 36.7 84 18 124/72 (89) 95 Last 24 Hours Test 11/06/16 12:31 11/06/16 13:28 11/06/16 14:31 11/06/16 15:29 Bedside Glucose 257 mg/dl 251 mg/dl 237 mg/dl 209 mg/dl Test 11/06/16 16:29 11/06/16 17:33 11/06/16 20:09 11/07/16 00:01 Bedside Glucose 220 mg/dl 213 mg/dl 326 mg/dl 228 mg/dl Test 11/07/16 04:05 11/07/16 07:37 11/07/16 11:40 Bedside Glucose 165 mg/dl 243 mg/dl 342 mg/dl Exam: Pt is awake, alert, nml speech and language. No facial asym. 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 LE strength full. No UE or LE dystaxia. Current Inpatient Medications Medications (Trade) Dose Ordered Sig/Bhavana Route Start Time Stop Time Status Last Admin Dose Admin Albuterol (Ventolin Hfa Inhaler) 2 puffs DAILY PRN INH 11/05/16 12:45 12/05/16 12:44 Amitriptyline HCl (Elavil Tab) 25 mg DAILY PO 11/06/16 09:00 12/06/16 08:59 11/07/16 08:08 25 MG Lisinopril (Zestril Tab) 2.5 mg DAILY PO 11/06/16 09:00 12/06/16 08:59 11/07/16 08:09 2.5 MG Sertraline HCl (Zoloft Tab) 50 mg DAILY PO 11/06/16 09:00 12/06/16 08:59 11/07/16 08:08 50 MG Nicotine (Nicoderm Cq 21MG Patch) 1 patch QAM TD 11/06/16 09:00 12/06/16 08:59 11/07/16 08:07 1 PATCH Miscellaneous (Remove Nicoderm Patch) 1 ea HS N/A 11/05/16 21:00 12/05/16 20:59 Sodium Chloride 1,000 ml @ 80 mls/hr [id number] IV 11/05/16 12:57 12/05/16 12:56 11/07/16 02:31 80 MLS/HR Acetaminophen (Tylenol Tab) 650 mg Q4H PRN PO 11/05/16 13:00 12/05/16 12:59 Glucose (Glucose 40% Gel) 15-30 GRAMS 15 GRAMS... UD PRN PO 11/05/16 13:00 12/05/16 12:59 Glucose (Glucose Chew Tab) 4-8 Tablets 4 Tabl... UD PRN PO 11/05/16 13:00 12/05/16 12:59 Dextrose (Dextrose 50% 50ML Syringe) 25-50ML OF 50% DW IV FOR... UD PRN IV 11/05/16 13:00 12/05/16 12:59 11/05/16 17:15 25 ML Glucagon (Glucagon Inj) 1 mg UD PRN SQ 11/05/16 13:00 12/05/16 12:59 Methylprednisolone Sodium Succinate 1000 mg/Dextrose 266 ml @ 250 mls/hr DAILY@1600 IV 11/05/16 16:00 11/07/16 17:04 11/06/16 15:39 250 MLS/HR Miscellaneous Information (Consult Glycemic Management Pharmacy) 1 ea UD PRN N/A 11/05/16 13:37 12/05/16 13:36 Fluticasone/ Vilanterol (Breo Ellipta 100-25 Mcg/Inh) 1 puffs DAILY INH 11/06/16 09:00 12/06/16 08:59 11/07/16 08:08 1 PUFFS Lorazepam (Ativan Tab) 1 mg HS PRN PO 11/05/16 16:45 12/05/16 16:44 Insulin Aspart (novoLOG ASPART) SLIDING SCALE If CARB RA... ACHS SC 11/06/16 16:30 12/06/16 16:29 11/07/16 12:01 29 UNITS Insulin Glargine (Lantus Solostar Pen) 30 units BID SC 11/07/16 21:00 12/07/16 20:59 Future Hold Insulin Aspart (novoLOG ASPART) SLIDING SCALE If CARB RA... 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 Pt with minimal weakness RUE which is stable. NO recurrent spasm RUE.Today is day 3 of IV steroids. If safe from a medical perspective I would have not objection to pt being dc after her dose of steroids today. I would dc without a steroid taper in an effort to minimize their effect on blood sugar. If pt were to have recurrence would use an oral taper of prednisone. She has taken prednisone in the past and been able to manage her blood sugars. Pt will call Dr. Whitney's office for an appt in 1-2 weeks. AKOSUA Mireles MD Plan See Above, AKOSUA Mireles MD
--- NOTE | 2016-11-07 14:02 | Discharge Instructions ---
Discharge Instructions Date of Service Nov 07, 2016. Admission Reason for Admission: Multiple Sclerosis, Type 1 Diabetes Mellitus Discharge Discharge Diagnosis / Problem: MULTIPLE SCLEROSIS /TYPE 1 DM Discharge Goals Goal(s): Decrease discomfort, Improve disease control, Therapeutic intervention Activity Recommendations Activity Limitations: resume your previous activity . Instructions / Follow-Up Instructions / Follow-Up HOSPITAL FOLLOW UP : 11/11/2016 @ 12:30 PM JENNIFER Esteban [facility] NEUROLOGY FOLLOW UP WITH DR PERERA IN 1-2 WEEKS, PLEASE CALL OFFICE FOR APPOINTMENT Current Hospital Diet Patient's current hospital diet: Diabetes Type 1 Diet Discharge Diet Recommended Diet: Diabetes Type 1 Diet Pending Studies Studies pending at discharge: no Laboratory Results Hemoglobin A1c Test 11/03/16 06:02 Range/Units Estimated Average Glucose 180 mg/dl Hemoglobin A1c 7.9 H 4.5-5.6 % Medical Emergencies . Who to Call and When: Medical Emergencies: If at any time you feel your situation is an emergency, please call 911 immediately. . Non-Emergent Contact Non-Emergency issues call your: Primary Care Provider . . "Provider Documentation" section prepared by Trinh Mosquera. . VTE Core Measure Inpt VTE Proph given/why not?: Treatment not indicated
--- NOTE | 2016-11-07 14:23 | Progress Note ---
Internal Med Progress Note Date of Service: Nov 07, 2016. Provider Documentation: SUBJECTIVE: does not have any more muscle spasm of rt hand concern about her BSG being elevated wants to know if she can use her own insulin pump OBJECTIVE: Vital Signs-as noted below Exam: General-no sign of distress Eyes-sclera non icteric ENT-NAD Neck-no JVD Lungs-CTA Heart-regular Abdomen-soft, non tender Extremities-no lower ext edema Neuro-AAO x3, no focal deficit Lab data as noted below. ASSESSMENT & PLAN: MULTIPLE SCLEROSIS WITH FLARE : recent admission with rt hand spasm MRI of brain shows multiple foci of increase uptake -suggestive of demyelinating disease Cervical CT IMPRESSION: 1. Foci of increased signal involving the right lateral column of the cervical cord at C3 and C5-C6 2. No evidence for abnormal postcontrast enhancement. 3. This appearance is suggestive of a demyelinating disorder 4. No evidence of disc herniation or spinal stenosis. 5. Upper cervical adenopathy, unknown etiology. Considerations include reactive cervical adenitis versus an entity such as lymphoma IV Solu-medrol 1gram x for 3 days - today Day # 3 last dose at 1600 appreciate input form neurology pt can be discharged home after IV Solu Medrol 3 rd dose no PO Prednisone taper indicated will have out pt follow up with Neurology Dr Whitney in 1-2 weeks Type 1 DM on an insulin pump follows with Endocrine Dr Aguirre was started on IV insulin gtt for high dose IV steroids appreciate input form pharmacy glycemic control transitioned to Lantus and SC Novolog BSG still remains elevated > 300 pt is very concerned ;wants to use her insulin pump for better control of BSG insulin pump was initially kept on hold as too many different type to insulin would be hard to keep tack and manage ( pump contains Apidra) ; [facility] pharmacy - NovoLog /Lantus pt;s last dose of IV Solu -Medrol scheduled today afternoon D/w Pharmacy -glycemic consult further adjustment with insulin regimen will be done pt will be in patient over night for further adjustment of insulin after last dose of IV Solu Medrol possible discharge home tomorrow eventually transition to insulin pump upon discharge Tobacco Use Disorder nicotine patch Depression/Anxiety continue home medications DVT PROPHYLAXIS scd and teds ambulate DISPOSITION possible discharge home tomorrow Vital Signs: Date Time Temp Pulse Resp B/P (MAP) Pulse Ox O2 Delivery O2 Flow Rate FiO2 11/07/16 08:00 97 Room Air 11/07/16 07:42 36.9 94 16 112/71 (85) 97 11/07/16 00:00 Room Air 11/06/16 23:25 37.0 102 20 138/85 (102) 96 Room Air 11/06/16 16:00 95 Room Air 11/06/16 15:07 36.7 84 18 124/72 (89) 95 Lab Results: Results Past 24 Hours Test 11/06/16 14:31 11/06/16 15:29 11/06/16 16:29 11/06/16 17:33 Range/Units Bedside Glucose 237 209 220 213 70-90 mg/dl Test 11/06/16 20:09 11/07/16 00:01 11/07/16 04:05 11/07/16 07:37 Range/Units Bedside Glucose 326 228 165 243 70-90 mg/dl Test 11/07/16 11:40 Range/Units Bedside Glucose 342 70-90 mg/dl
[2016-11-07] MEDS: INSULIN GLULISINE SCH ×3 (14:29→20:52)
[2016-11-07 14:57] VITALS: BP 117/75; PULSE 95; TEMP 37.3; O2SAT 94
[2016-11-07] MEDS ORDERED: INSULIN GLULISINE 100 UNIT/ML SC PRN (15:30)
[2016-11-07] MEDS: METHYLPREDNISOLONE IV 1,000 MG in DEXTROSE 5% 250ML 250 ML IV SCH (16:28)
[2016-11-07 23:24] VITALS: BP 118/79; PULSE 80; TEMP 37.5; O2SAT 97
[2016-11-08] MEDS ORDERED: INSULIN ASPART 100 UNITS/ML 3 ML PEN SC SCH
[2016-11-08] MEDS: INSULIN GLULISINE SCH ×3 (04:00→08:16)
[2016-11-08 07:39] VITALS: BP 117/75; PULSE 90; TEMP 36.7; O2SAT 98
[2016-11-08] MEDS: AMITRIPTYLINE HCL 25 MG TAB PO SCH (08:17)
[2016-11-08] MEDS: NICOTINE 21 MG/24 HR TDSY TD SCH (08:17)
[2016-11-08] MEDS: SERTRALINE HCL 50 MG TAB PO SCH (08:17)
[2016-11-08] MEDS: LISINOPRIL 2.5 MG TAB PO SCH (08:17)
[2016-11-08] MEDS: FLUTICASONE FUROATE VILANTEROL INH SCH (08:18)
[2016-11-08 08:33] VITALS: O2SAT 97
--- NOTE | 2016-11-08 09:37 | Pharmacy Progress Note ---
Glycemic: Assessment & Plan Date of Service Nov 08, 2016. Assessment & Plan Assessment: * The patient is currently utilizing her own insulin pump for management of her diabetes. * parameters were slightly more aggressive secondary to hyperglycemia - now with euglycemia and will return to home settings this AM * Solu-Medrol course completed on 11/07 * BSGs returning to normal * A1c - 7.9% is current Plan: * Return to home insulin pump settings as BSGs are now euglycemic * A1c added to discharge instructions * Pharmacy will continue to monitor patient daily and write orders per [facility] inpatient glycemic control protocol. Thanks. * Please note that the plan above was derived based on current level of insulin resistance and hospital stress. These recommendations are appropriate for inpatient admission only. Plan of care upon discharge will need to be reassessed to avoid potential outpatient hypo/hyperglycemia.
[2016-11-08 10:11] VITALS: BP 117/75; PULSE 90; TEMP 36.7; O2SAT 97
--- NOTE | 2016-11-08 10:16 | Progress Note ---
Internal Med Progress Note Date of Service: Nov 08, 2016. Provider Documentation: SUBJECTIVE: feels fine no hand spasm for last 2 days on insulin pump BSG improved to normal stable to be discharged home today OBJECTIVE: Vital Signs-as noted below Exam: General-no sign of distress Eyes-sclera non icteric ENT-NAD Neck-no JVD Lungs-CTA Heart-regular Abdomen-soft, non tender Extremities-no lower ext edema Neuro-AAO x3, no focal deficit Lab data as noted below. ASSESSMENT & PLAN: MULTIPLE SCLEROSIS WITH FLARE : recent admission with rt hand spasm MRI of brain shows multiple foci of increase uptake -suggestive of demyelinating disease Cervical CT IMPRESSION: 1. Foci of increased signal involving the right lateral column of the cervical cord at C3 and C5-C6 2. No evidence for abnormal postcontrast enhancement. 3. This appearance is suggestive of a demyelinating disorder 4. No evidence of disc herniation or spinal stenosis. 5. Upper cervical adenopathy, unknown etiology. Considerations include reactive cervical adenitis versus an entity such as lymphoma given IV Solu-medrol 1gram x for 3 days - appreciate input form neurology pt can be discharged home after IV Solu Medrol 3 rd dose no PO Prednisone taper indicated will have out pt follow up with Neurology Dr Whitney in 1-2 weeks Type 1 DM on an insulin pump follows with Endocrine Dr Aguirre was started on IV insulin gtt for high dose IV steroids appreciate input form pharmacy glycemic control started on insulin pump -BSG remains well controlled 130;s stable to be discharged home with previous setting on insulin pump Tobacco Use Disorder nicotine patch pt is counselled repeatedly importance of smoking cessation to prevent MS flare Depression/Anxiety continue home medications DVT PROPHYLAXIS scd and teds ambulate DISPOSITION stable to be discharged home today Vital Signs: Date Time Temp Pulse Resp B/P (MAP) Pulse Ox O2 Delivery O2 Flow Rate FiO2 11/08/16 10:11 36.7 90 16 97 Room Air 11/08/16 08:33 97 Room Air 11/08/16 07:39 36.7 90 16 117/75 (89) 98 11/08/16 00:01 Room Air 11/07/16 23:24 37.5 80 20 118/79 (92) 97 Room Air 11/07/16 19:45 Room Air 11/07/16 16:00 Room Air 11/07/16 14:57 37.3 95 18 117/75 (89) 94 Room Air Lab Results: Results Past 24 Hours Test 11/07/16 11:40 11/07/16 14:10 11/07/16 16:27 11/07/16 20:30 Range/Units Bedside Glucose 342 318 113 96 70-90 mg/dl Test 11/08/16 00:01 11/08/16 04:05 11/08/16 07:15 Range/Units Bedside Glucose 139 116 93 70-90 mg/dl
--- NOTE | 2016-11-08 10:29 | Discharge Summary ---
Discharge Summary Date of Service Nov 08, 2016. Discharge Summary Admission Date: Nov 05, 2016 at 13:06 Discharge Date: Nov 08, 2016 Discharge Disposition: Home Principal Diagnosis: MULTIPLE SCLEROSIS /TYPE 1 DM Consultations: [facility]Y Medication Reconciliation Continued Medications: Albuterol Hfa (Ventolin Hfa) 200 Puffs/67207 Mcg Aers 2-4 PUFFS INH DAILY PRN for SOB/Wheezing Amitriptyline HCl (Amitriptyline HCl) 25 Mg Tab 25 MG PO DAILY Etonogestrel (Nexplanon) 68 Mg Imp 1 EA SUBD [id number] Fluticasone Furoate-Vilanterol (Breo Ellipta) 1 Inh Inh 1 PUFF INH DAILY 100/25 MCG Insulin Glulisine (Apidra) 100 Unit/Ml Inj PUMP Lisinopril (Lisinopril) 2.5 Mg Tab 2.5 MG PO DAILY Loratadine (Loratadine) 10 Mg Cap 10 MG PO DAILY Metformin Hcl (Glucophage) 500 Mg Tab 2000 MG PO DAILY FOUR 500MG TABLETS Sertraline (Zoloft) 50 Mg Tab 50 MG PO DAILY Sumatriptan Succinate (Imitrex) 100 Mg Tab 100 MG PO PRN Referrals At Discharge Follow up Referrals: Neurologist Referral - Within 1-2 Weeks with Bashir Perera M.D. (MEDICINE) Admission Information HPI (per Admitting provider): This is a 26 year old female with a PMH of type 1 DM with an insulin pump, recent diagnosis of MS, tobacco use disorder, hx. of migraines - was here at [facility] on November 04 with new diagnosis of MS. Suggested to receive steroids at that time (IV to PO) but she left the hospital. She called Dr. Mosquera, [facility] hospitalist, multiple times on 11/04 asking about outpatient steroids. As per discussion with Dr. Mosquera, she states that the recommendation was to have 3 days of IV steroids; but patient did not want this done inpatient and wanted it to be done as an outpatient. Main concerns raised by hospitalist team is that patient is a type 1 diabetic who will receive high dose of steroids, which will cause elevation of sugars. Her main symptoms include muscle twitching and weakness. Denies fevers/chills. Physical Exam (per Admitting): General Appearance: no apparent distress Head: normocephalic, atraumatic ENT: hearing grossly normal Respiratory/Chest: chest non-tender, lungs clear, normal breath sounds, no respiratory distress, no accessory muscle use Cardiovascular: regular rate, rhythm, no edema, no murmur Abdomen/GI: normal bowel sounds, non tender, soft Extremities/Musculoskelatal: + pertinent finding (muscle weakness) Hospital Course MULTIPLE SCLEROSIS WITH FLARE : recent admission with rt hand spasm MRI of brain shows multiple foci of increase uptake -suggestive of demyelinating disease Cervical CT IMPRESSION: 1. Foci of increased signal involving the right lateral column of the cervical cord at C3 and C5-C6 2. No evidence for abnormal postcontrast enhancement. 3. This appearance is suggestive of a demyelinating disorder 4. No evidence of disc herniation or spinal stenosis. 5. Upper cervical adenopathy, unknown etiology. Considerations include reactive cervical adenitis versus an entity such as lymphoma given IV Solu-medrol 1gram x for 3 days - appreciate input form neurology pt can be discharged home after IV Solu Medrol 3 rd dose no PO Prednisone taper indicated will have out pt follow up with Neurology Dr Perera in 1-2 weeks Type 1 DM on an insulin pump follows with Endocrine Dr Aguirre was started on IV insulin gtt for high dose IV steroids appreciate input form pharmacy glycemic control started on insulin pump -BSG remains well controlled 130;s stable to be discharged home with previous setting on insulin pump Tobacco Use Disorder nicotine patch pt is counselled repeatedly importance of smoking cessation to prevent MS flare Depression/Anxiety continue home medications DVT PROPHYLAXIS scd and teds ambulate DISPOSITION stable to be discharged home today Total time spent on discharge = 35 MINS This includes examination of the patient, discharge planning, medication reconciliation, and communication with other providers. Discharge Instructions Discharge Instructions Date of Service Nov 07, 2016. Admission Reason for Admission: Multiple Sclerosis, Type 1 Diabetes Mellitus Discharge Discharge Diagnosis / Problem: MULTIPLE SCLEROSIS /TYPE 1 DM Discharge Goals Goal(s): Decrease discomfort, Improve disease control, Therapeutic intervention Activity Recommendations Activity Limitations: resume your previous activity . Instructions / Follow-Up Instructions / Follow-Up HOSPITAL FOLLOW UP : 11/11/2016 @ 12:30 PM [facility] NEUROLOGY FOLLOW UP WITH DR PERERA IN 1-2 WEEKS, PLEASE CALL OFFICE FOR APPOINTMENT Current Hospital Diet Patient's current hospital diet: Diabetes Type 1 Diet Discharge Diet Recommended Diet: Diabetes Type 1 Diet Pending Studies Studies pending at discharge: no Laboratory Results Hemoglobin A1c Test 11/03/16 06:02 Range/Units Estimated Average Glucose 180 mg/dl Hemoglobin A1c 7.9 H 4.5-5.6 % Medical Emergencies . Who to Call and When: Medical Emergencies: If at any time you feel your situation is an emergency, please call 911 immediately. . Non-Emergent Contact Non-Emergency issues call your: Primary Care Provider . . "Provider Documentation" section prepared by Trinh Mosquera. . VTE Core Measure Inpt VTE Proph given/why not?: Treatment not indicated Additional Copies To Bashir Perera M.D. (MEDICINE)
== END 2016-11-08 10:49 | disposition home or self-care (01) | DRG 60 ==
LOC: C.EDB 11:11 → C.MED 13:06 → ENRESERV 13:22
PROVIDERS: ADMIT Family Medicine; ATTEND Hospitalist
DX: G35 Multiple sclerosis (principal); J45.909 Unspecified asthma, uncomplicated; E10.9 Type 1 diabetes mellitus without complications; Z83.3 Family history of diabetes mellitus; F17.200 Nicotine dependence, unspecified, uncomplicated; Z96.41 Presence of insulin pump (external) (internal); G43.909 Migraine, unspecified, not intractable, without status migrainosus; F41.8 Other specified anxiety disorders; E07.9 Disorder of thyroid, unspecified